=== PATIENT | male | born 1955 | race Caucasian/White ===

== ENCOUNTER 2021-01-17 21:09 | Inpatient (IN) | payer MEDICARE, OTHER ==
[~2021-01-17] VITALS: Ht 172.7 cm; Wt 67.1 kg
--- NOTE | 2021-01-17 21:50 | NUR ---
[facility], pt. on 5150 hold for dto to be medically cleared to be admitted to [facility]. Pt aox3.
[2021-01-17] MEDS ORDERED: FAMO20TA8 PO (22:00)
[2021-01-17] MEDS ORDERED: DOCUSATE (22:00)
[2021-01-17 22:16] LABS: *BILIRUBIN,URIN NEGATIVE (NEGATIVE); *CLARITY,URINE CLOUDY (CLEAR); *COLOR,URINE YELLOW (YELLOW); *KETONES,URINE NEGATIVE (NEGATIVE); LEUKOCYTE ESTERASE ,URINE TRACE (NEGATIVE); NITRITE, URINE NEGATIVE (NEGATIVE); PH,URINE 7.5 (5.0-8.0); UGLUCOSE 2+ (NEGATIVE)
[2021-01-17 22:17] LABS: *BLOOD, URINE TRACE INTACT (NEGATIVE)
[2021-01-17 22:26] LABS: *AMPHETAMINE, URINE NEGATIVE (NEGATIVE); *CANNABINOID, URINE NEGATIVE (NEGATIVE); *COCCAINE, URINE NEGATIVE (NEGATIVE); *OPIATE, URINE NEGATIVE (NEGATIVE); *PHENCYCLIDINE SCREEN,URINE NEGATIVE (NEGATIVE)
[2021-01-17] MEDS ORDERED: NITROFURANTOIN/NITROFURAN MAC 100 MG CAPSULE PO ONE ×2 (22:45→22:48)
--- NOTE | 2021-01-17 22:50 | NUR ---
Pt resting in bed with eyes closed. No signs of distress. Assisted pt. to restroom and offered pt. blankets. Pts items are secured away from bedside. Monitoring pt. closely.
[2021-01-17 22:56] LABS: BACTERIA,URINE MANY /HPF (NONE SEEN); RBC,URINE 0-3 /HPF (0-3); SQUAMOUS EPITHELIAL CELL,UR FEW /HPF (NONE SEEN); WBC,URINE 20-50 /HPF (0-3)
--- NOTE | 2021-01-17 23:00 | NUR ---
Comfort measures offered. Food and beverages offered. Pts behavior is talkative/cooperative at this time. pt. is alert, resting comfortably. bed in lowest position w/ side rails up. room light remains on, w/ direct line of sight for security. Vss. Will continue to monitor.
[2021-01-17] MEDS ORDERED: INSULIN REGULAR, HUMAN 300 UNIT/3 ML VIAL SQ ONE (23:30)
[2021-01-17] MEDS ORDERED: INSULIN REGULAR, HUMAN 300 UNIT/3 ML VIAL ONE (23:37)
--- NOTE | 2021-01-17 23:55 | NUR ---
Gave report to BRIAN Levy. Pt. to got to room 145C in [facility].
--- NOTE | 2021-01-18 00:06 | NUR ---
Note billy in ED - 01/18/21 at 0009 by ELDA Pt resting in bed with eyes closed. No signs of distress. Assisted pt. to restroom and offered pt. blankets. Pts items are secured away from bedside. Monitoring pt. closely.
[2021-01-18] MEDS ORDERED: BLOOD SUGAR DIAGNOSTIC 1 EACH STRIP VI ONE (00:15)
[2021-01-18] MEDS ORDERED: MAGNESIUM HYDROXIDE 30 ML LIQUID UDC PO PRN (00:15)
[2021-01-18] MEDS ORDERED: MAG HYDROX/AL HYDROX/SIMETH 30 ML LIQUID UDC PO PRN (00:15)
[2021-01-18] MEDS: LORAZEPAM 1 MG TABLET PO PRN ×2 (01:00→02:06)
[2021-01-18] MEDS: ACETAMINOPHEN 325 MG TABLET PO PRN (01:01)
[2021-01-18] MEDS: TEMAZEPAM 7.5 MG CAPSULE PO PRN (01:01)
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
[2021-01-18 03:31] VITALS: BP 162/85
[2021-01-18 05:51] VITALS: BP 140/80
--- NOTE | 2021-01-18 07:04 | NUR ---
slept 2.5 hours, total. assisted to the bathroom earlier, but is back asleep. no distress noted.
[2021-01-18 07:30] VITALS: BP 150/79
[2021-01-18] MEDS ORDERED: ESCI10TA PO (08:30)
[2021-01-18] MEDS ORDERED: GABA400C PO (08:31)
[2021-01-18] MEDS ORDERED: HYDR-4209 PO (08:33)
[2021-01-18] MEDS ORDERED: AMLO10TA4 PO (08:33)
[2021-01-18] MEDS ORDERED: MINO2.5T PO (08:34)
[2021-01-18] MEDS ORDERED: ATOR20TA PO (08:36)
[2021-01-18] MEDS ORDERED: QUET200T PO (08:36)
[2021-01-18] MEDS: HYDROCODONE/APAP 5-325MG TABLET PO PRN ×2 (09:44→18:35)
--- NOTE | 2021-01-18 09:59 | NUR ---
FIREARMS REPORT: Hadoop Java Developer completed and submitted a DOJ firearms report for 5150 grave disability certification. A copy of report has been placed in patient chart.
--- NOTE | 2021-01-18 10:00 | NUR ---
called [facility] to follow up with Covid vaccination report waiting for fax record to [place]. Addendum: 01/18/21 at 1842 by JAYLA PAZ RN [phone]
--- NOTE | 2021-01-18 11:09 | NUR ---
ABEL Initial Discharge Plan: Patient currently resides at [facility] (SNF) located at [address] [place] [address]; ([phone]). ABEL spoke with admin Le to see if pt is welcomed back. Le stated she would have to be in contact with facility and will let this service writer know soon. This SW contacted Nan ([phone]) and was unavailable, this service writer left a voicemail.
--- NOTE | 2021-01-18 11:10 | NUR ---
Family Contact: This SW contacted Nan ([phone]) and was unavailable, this advertising copy writer left a voicemail.
--- NOTE | 2021-01-18 11:35 | NUR ---
Treatment Plan: Pt refused to sign treatment plan and appeared to be confused.
--- NOTE | 2021-01-18 12:01 | NUR ---
took all wound picture from left anterior leg ,right nose, right thumb, right big toe , unable to pint from camera .will endorse.to next shift.
[2021-01-18] MEDS: QUETIAPINE FUMARATE 100 MG TABLET PO SCH (13:15)
[2021-01-18] MEDS: GABAPENTIN 100 MG CAPSULE PO SCH ×2 (13:15→17:08)
--- NOTE | 2021-01-18 14:53 | NUR ---
Family Contact: This SW received a phone call from friend Nan ([phone]) and stated that she is not really involved in patient's care and that pt gives her number. She shared that pt does not have any family that is involved in his care.
[2021-01-18] MEDS ORDERED: HYDROCODONE/APAP 5-325MG TABLET PO PRN (15:30)
[2021-01-18] MEDS ORDERED: DEXTROSE 50% 50 ML DISP.SYRIN IV PRN (17:00)
[2021-01-18] MEDS ORDERED: GABAPENTIN 400 MG CAPSULE PO SCH (17:00)
[2021-01-18] MEDS: MINOXIDIL 2.5 MG TABLET PO SCH (17:00)
[2021-01-18] MEDS: AMLODIPINE 10 MG TABLET PO SCH (17:08)
[2021-01-18 18:00] VITALS: BP 122/67
[2021-01-18] MEDS: NITROFURANTOIN/NITROFURAN MAC 100 MG CAPSULE PO SCH (20:48)
[2021-01-18] MEDS: ATORVASTATIN 20 MG TABLET PO SCH (20:48)
[2021-01-18] MEDS: BLOOD SUGAR DIAGNOSTIC 1 EACH STRIP VI SCH (20:59)
[2021-01-18] MEDS ORDERED: QUETIAPINE FUMARATE 100 MG TABLET PO SCH (21:00)
[2021-01-18] MEDS: INSULIN REGULAR, HUMAN 300 UNIT/3 ML VIAL SQ PRN (21:06)
[2021-01-18 21:13] VITALS: BP 136/68
[2021-01-19] MEDS: BLOOD SUGAR DIAGNOSTIC 1 EACH STRIP VI SCH ×4 (06:22→20:36)
--- NOTE | 2021-01-19 06:52 | NUR ---
GPS: Pt.slept for 8.45 last night. Calm and cooperative without any escalation of behavior noted. Assisted to the bathroom prn due to unsteady gait. B.S earlier was 183mg/dl. Will continue to monitor.
[2021-01-19 07:30] VITALS: BP 150/78
[2021-01-19 08:24] LABS: BILIRUBIN,TOTAL 0.3 mg/dL (0.2-1.0); CREATININE 0.8 mg/dL (0.6-1.3); POTASSIUM 4.5 mmol/L (3.5-5.1); TOTAL PROTEIN, SERUM 7.2 g/dL (6.4-8.2)
[2021-01-19] MEDS: FAMOTIDINE 20 MG TABLET PO SCH (08:42)
[2021-01-19] MEDS: AMLODIPINE 10 MG TABLET PO SCH (08:42)
[2021-01-19] MEDS: QUETIAPINE FUMARATE 100 MG TABLET PO SCH ×3 (08:43→20:28)
[2021-01-19] MEDS: NITROFURANTOIN/NITROFURAN MAC 100 MG CAPSULE PO SCH ×2 (08:43→20:28)
[2021-01-19] MEDS: MINOXIDIL 2.5 MG TABLET PO SCH ×2 (08:45→17:02)
[2021-01-19] MEDS: INSULIN REGULAR, HUMAN 300 UNIT/3 ML VIAL SQ PRN ×2 (08:51→20:40)
[2021-01-19] MEDS ORDERED: GABAPENTIN 100 MG CAPSULE PO SCH (09:00)
--- NOTE | 2021-01-19 09:16 | NUR ---
SNF Referral: [facility]
--- NOTE | 2021-01-19 09:30 | NUR ---
GPS: Pt alert/ oriented to person and place. pt cooperative with care. medications given and tolerated well by the pt. assisted with transfer from bed to wheelchair and pt went to toilet for BM today. no aggresive behavior at this time.
--- NOTE | 2021-01-19 11:20 | NUR ---
WOUND CARE CONSULT: PT PRESENTS WITH SCRATCH GERONIMO ON LEFT LOWER LEG, SKIN CONDITION TO RT LOWER LEG, SOME TOE AMPUTATIONS AND DRY WOUND TO RT GREAT TOE, PRESENT ON ADMISSION. SCRATCH GERONIMO NOTED TO NOSE WELL. RECOMMEND DPM CONSULT. DR SAINI NOTIFIED. WILL SEE PRDeonna VAUGHAN IN AGREEMENT WITH PLAN OF CARE.
--- NOTE | 2021-01-19 11:49 | NUR ---
SNF Contact: SW spoke with Julita porter from [facility] who stated that pt is accepted.
[2021-01-19] MEDS: GABAPENTIN 100 MG CAPSULE PO SCH ×2 (14:30→17:02)
[2021-01-19] MEDS: HYDROCODONE/APAP 5-325MG TABLET PO PRN (16:16)
[2021-01-19 16:37] VITALS: BP 140/72
--- NOTE | 2021-01-19 17:56 | NUR ---
GPS: pt alert and verbally responsive. complaint of pain on right ear 9/10, given NORCO and tolerated well. 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 reported to MD Ahmadi and ordered bactroban ointment. informed pt. no episode of hurting self. pt tolerated medications given.
[2021-01-19 20:16] VITALS: BP 124/72
[2021-01-19] MEDS: ATORVASTATIN 20 MG TABLET PO SCH (20:28)
[2021-01-19] MEDS: MUPIROCIN 2% OINT 22 GM TUBE NS SCH (20:28)
[2021-01-20] MEDS: BLOOD SUGAR DIAGNOSTIC 1 EACH STRIP VI SCH ×4 (06:28→20:42)
[2021-01-20 07:30] VITALS: BP 129/73
[2021-01-20] MEDS: INSULIN REGULAR, HUMAN 300 UNIT/3 ML VIAL SQ PRN ×4 (08:05→21:10)
[2021-01-20] MEDS: MUPIROCIN 2% OINT 22 GM TUBE NS SCH ×2 (08:59→20:33)
[2021-01-20] MEDS: AMLODIPINE 10 MG TABLET PO SCH (09:00)
[2021-01-20] MEDS: FAMOTIDINE 20 MG TABLET PO SCH (09:00)
[2021-01-20] MEDS: MINOXIDIL 2.5 MG TABLET PO SCH ×2 (09:00→16:15)
[2021-01-20] MEDS: NITROFURANTOIN/NITROFURAN MAC 100 MG CAPSULE PO SCH (09:00)
[2021-01-20] MEDS: QUETIAPINE FUMARATE 100 MG TABLET PO SCH ×3 (09:00→20:33)
[2021-01-20] MEDS: GABAPENTIN 100 MG CAPSULE PO SCH ×3 (09:00→16:15)
[2021-01-20 13:00] VITALS: BP 144/78
[2021-01-20 20:07] VITALS: BP 141/78
[2021-01-20] MEDS: SULFAMETH/TRIMETH 800/160 MG TABLET PO SCH (20:33)
[2021-01-20] MEDS: ATORVASTATIN 20 MG TABLET PO SCH (20:33)
[2021-01-20] MEDS: HYDROCODONE/APAP 5-325MG TABLET PO PRN (20:37)
[2021-01-21] MEDS: BLOOD SUGAR DIAGNOSTIC 1 EACH STRIP VI SCH ×4 (06:22→20:45)
[2021-01-21] MEDS: INSULIN REGULAR, HUMAN 300 UNIT/3 ML VIAL SQ PRN ×4 (07:45→20:48)
[2021-01-21 08:00] VITALS: BP 111/65
[2021-01-21] MEDS: GABAPENTIN 100 MG CAPSULE PO SCH ×3 (08:19→17:23)
[2021-01-21] MEDS: QUETIAPINE FUMARATE 100 MG TABLET PO SCH ×3 (08:19→20:36)
[2021-01-21] MEDS: FAMOTIDINE 20 MG TABLET PO SCH (08:19)
[2021-01-21] MEDS: MINOXIDIL 2.5 MG TABLET PO SCH ×2 (08:19→17:23)
[2021-01-21] MEDS: SULFAMETH/TRIMETH 800/160 MG TABLET PO SCH ×2 (08:19→20:36)
[2021-01-21] MEDS: AMLODIPINE 10 MG TABLET PO SCH (08:20)
[2021-01-21] MEDS: CLOTRIMAZOLE/BETAMET DIPROP CREAM 15 GM TUBE TOP SCH (08:20)
[2021-01-21] MEDS: MUPIROCIN 2% OINT 22 GM TUBE NS SCH ×2 (08:20→20:36)
[2021-01-21 16:00] VITALS: BP 102/56
[2021-01-21 19:51] VITALS: BP 110/56
[2021-01-21] MEDS: ATORVASTATIN 20 MG TABLET PO SCH (20:36)
[2021-01-22] MEDS: SULFAMETH/TRIMETH 800/160 MG TABLET PO SCH ×2 (08:21→21:01)
[2021-01-22] MEDS: BLOOD SUGAR DIAGNOSTIC 1 EACH STRIP VI SCH ×4 (08:21→21:01)
[2021-01-22] MEDS: QUETIAPINE FUMARATE 100 MG TABLET PO SCH ×3 (08:22→21:01)
[2021-01-22] MEDS: MINOXIDIL 2.5 MG TABLET PO SCH ×2 (08:22→16:51)
[2021-01-22] MEDS: FAMOTIDINE 20 MG TABLET PO SCH (08:22)
[2021-01-22] MEDS: AMLODIPINE 10 MG TABLET PO SCH (08:23)
[2021-01-22] MEDS: GABAPENTIN 100 MG CAPSULE PO SCH ×3 (08:25→16:51)
[2021-01-22] MEDS: MUPIROCIN 2% OINT 22 GM TUBE NS SCH ×2 (08:25→21:02)
[2021-01-22 08:27] VITALS: BP 115/67
[2021-01-22] MEDS: INSULIN REGULAR, HUMAN 300 UNIT/3 ML VIAL SQ PRN ×3 (08:27→21:04)
[2021-01-22] MEDS: CLOTRIMAZOLE/BETAMET DIPROP CREAM 15 GM TUBE TOP SCH (09:09)
[2021-01-22 16:01] VITALS: BP 127/77
[2021-01-22] MEDS: HYDROCODONE/APAP 5-325MG TABLET PO PRN ×2 (16:48→23:32)
--- NOTE | 2021-01-22 17:55 | NUR ---
patient compliant with medications and care. continues on Bactroban for MRSA nares. ambulating with FWW,no aggressive or combative behavior noted. in no acute distress.
[2021-01-22 20:10] VITALS: BP 105/61
--- NOTE | 2021-01-22 21:00 | NUR ---
Received patient in the day room watching TV. he is noted A/O x 2. he is calm and pleasant upon approached but then later, he was noted fixed on his Harrison pain medications. He stated, "I want to keep my pain medication with me, I don't want anyone to take my medication or steal it". Patient was given a reality checks and reoriented. he was reassured for his safety. He denied SI/HI/VH/AH he is able to verbally CFS. V/S stable. he was given PO fluids and snacks. safety and fall precaution in place. will continue to monitor.
[2021-01-22] MEDS: ATORVASTATIN 20 MG TABLET PO SCH (21:01)
[2021-01-23] MEDS: HYDROCODONE/APAP 5-325MG TABLET PO PRN ×2 (06:29→17:49)
[2021-01-23] MEDS: BLOOD SUGAR DIAGNOSTIC 1 EACH STRIP VI SCH ×4 (06:32→20:20)
[2021-01-23 08:04] VITALS: BP 112/61
[2021-01-23] MEDS: INSULIN REGULAR, HUMAN 300 UNIT/3 ML VIAL SQ PRN ×3 (08:29→20:29)
[2021-01-23] MEDS: SULFAMETH/TRIMETH 800/160 MG TABLET PO SCH ×2 (08:30→20:19)
[2021-01-23] MEDS: MINOXIDIL 2.5 MG TABLET PO SCH ×2 (08:30→17:06)
[2021-01-23] MEDS: QUETIAPINE FUMARATE 100 MG TABLET PO SCH ×2 (08:30→12:28)
[2021-01-23] MEDS: AMLODIPINE 10 MG TABLET PO SCH (08:31)
[2021-01-23] MEDS: GABAPENTIN 100 MG CAPSULE PO SCH (08:31)
[2021-01-23] MEDS: FAMOTIDINE 20 MG TABLET PO SCH (08:31)
[2021-01-23] MEDS: CLOTRIMAZOLE/BETAMET DIPROP CREAM 15 GM TUBE TOP SCH (08:32)
[2021-01-23] MEDS: MUPIROCIN 2% OINT 22 GM TUBE NS SCH ×2 (08:32→20:44)
[2021-01-23] MEDS: GABAPENTIN 300 MG CAPSULE PO SCH ×2 (12:28→17:06)
[2021-01-23 16:05] VITALS: BP 147/65
--- NOTE | 2021-01-23 18:24 | NUR ---
patient compliant with medications care. continues on Bactroban for MRSA nares. ambulating with FWW, on Acc-check with sliding scale no aggressive or combative behavior noted. in no acute distress.
[2021-01-23 20:13] VITALS: BP 98/52
[2021-01-23] MEDS: ATORVASTATIN 20 MG TABLET PO SCH (20:19)
[2021-01-23] MEDS: QUETIAPINE FUMARATE 200 MG TABLET PO SCH (20:19)
--- NOTE | 2021-01-23 22:00 | NUR ---
Received to care, initially in room, but then came to TV room, interacting minimally with select male peers. Compliant with medications, and tx plan, including keeping mask on, when outside of room. Reeducated on his MRSA infection to nares. Compliant with tx given, for such, as well as all medications and insulin coverage. As of 2200, he appears to be asleep. no distress noted. will continue to monitor closely.
--- NOTE | 2021-01-24 06:00 | NUR ---
slept 5.75 hours, total. continues to sleep. no distress noted
[2021-01-24] MEDS: BLOOD SUGAR DIAGNOSTIC 1 EACH STRIP VI SCH ×4 (06:41→20:39)
[2021-01-24 08:00] VITALS: BP 132/77
[2021-01-24] MEDS: SULFAMETH/TRIMETH 800/160 MG TABLET PO SCH ×2 (08:41→20:32)
[2021-01-24] MEDS: GABAPENTIN 300 MG CAPSULE PO SCH ×3 (08:41→16:24)
[2021-01-24] MEDS: AMLODIPINE 10 MG TABLET PO SCH (08:41)
[2021-01-24] MEDS: FAMOTIDINE 20 MG TABLET PO SCH (08:41)
[2021-01-24] MEDS: MINOXIDIL 2.5 MG TABLET PO SCH ×2 (08:41→16:24)
[2021-01-24] MEDS: QUETIAPINE FUMARATE 100 MG TABLET PO SCH ×2 (08:41→12:01)
[2021-01-24] MEDS: CLOTRIMAZOLE/BETAMET DIPROP CREAM 15 GM TUBE TOP SCH (08:42)
[2021-01-24] MEDS: MUPIROCIN 2% OINT 22 GM TUBE NS SCH ×2 (08:42→20:32)
[2021-01-24] MEDS: INSULIN REGULAR, HUMAN 300 UNIT/3 ML VIAL SQ PRN ×2 (12:02→16:27)
[2021-01-24] MEDS: HYDROCODONE/APAP 5-325MG TABLET PO PRN (12:09)
--- NOTE | 2021-01-24 14:33 | NUR ---
Court Hearing: Patient's court hearing for 0610 was today and it was upheld for GD.
[2021-01-24 16:13] VITALS: BP 127/78
--- NOTE | 2021-01-24 18:24 | NUR ---
received patient compliant with medications care. continues on Bactroban for MRSA nares. ambulating with FWW,no aggressive or combative behavior noted. in no acute distress.
[2021-01-24 20:22] VITALS: BP 108/72
[2021-01-24] MEDS: QUETIAPINE FUMARATE 200 MG TABLET PO SCH (20:32)
[2021-01-24] MEDS: ATORVASTATIN 20 MG TABLET PO SCH (20:32)
[2021-01-25] MEDS: HYDROCODONE/APAP 5-325MG TABLET PO PRN ×3 (02:27→15:00)
[2021-01-25] MEDS: BLOOD SUGAR DIAGNOSTIC 1 EACH STRIP VI SCH ×4 (06:22→20:26)
--- NOTE | 2021-01-25 06:36 | NUR ---
GPS: Pt.slept for 7.15 last night. [facility] prn was given for pain earlier and was effective. No increased agitation noted. B.S at this time is 120mg/dl. Safe environment provided. Will continue to monitor.
[2021-01-25 07:30] VITALS: BP 118/66
--- NOTE | 2021-01-25 07:30 | NUR ---
Received report from ANNA Plummer. All questions, comments, and concerns were addressed. Received patient resting quietly in his assigned bed. Bed is in low and locked position.
[2021-01-25] MEDS: CLOTRIMAZOLE/BETAMET DIPROP CREAM 15 GM TUBE TOP SCH (08:04)
[2021-01-25] MEDS: MUPIROCIN 2% OINT 22 GM TUBE NS SCH ×2 (08:04→20:26)
[2021-01-25] MEDS: FAMOTIDINE 20 MG TABLET PO SCH (08:05)
[2021-01-25] MEDS: QUETIAPINE FUMARATE 100 MG TABLET PO SCH ×2 (08:05→12:15)
[2021-01-25] MEDS: AMLODIPINE 10 MG TABLET PO SCH (08:05)
[2021-01-25] MEDS: MINOXIDIL 2.5 MG TABLET PO SCH ×2 (08:05→17:38)
[2021-01-25] MEDS: GABAPENTIN 300 MG CAPSULE PO SCH ×3 (08:05→17:38)
[2021-01-25] MEDS: INSULIN REGULAR, HUMAN 300 UNIT/3 ML VIAL SQ PRN ×3 (12:18→20:27)
[2021-01-25 16:46] VITALS: BP 116/72
--- NOTE | 2021-01-25 17:54 | NUR ---
Patient is alert and oriented. Patient is cooperative, redirectable, and has appropriate interaction with others. Patient denies SI/HI, denies AH/VH. Patient is compliant with medications, no adverse reaction noted. Patient able to tolerate food and fluids. Ambulates with wheelchair due to unsteady gait. Patient is able to perform self care and ADL's independently. Patient encouraged to communicate needs to staff, encouraged to participate in the unit groups and therapeutic milieu.
--- NOTE | 2021-01-25 18:20 | NUR ---
Patient was found kneeling on his knee in the day room next to the trash can. Patient states he kneeled down to throw the trash away from his tray and he couldn't stand back up because he felt too weak. Patient given his walker and was able to ambulate with walker. Patient provided with education about reason for use of walk and about his safety. patient verbalizes understanding.
[2021-01-25] MEDS: ATORVASTATIN 20 MG TABLET PO SCH (20:22)
[2021-01-25] MEDS: QUETIAPINE FUMARATE 200 MG TABLET PO SCH (20:22)
[2021-01-25 20:49] VITALS: BP 144/82
[2021-01-26] MEDS: BLOOD SUGAR DIAGNOSTIC 1 EACH STRIP VI SCH ×4 (06:32→20:21)
[2021-01-26] MEDS: HYDROCODONE/APAP 5-325MG TABLET PO PRN ×2 (07:00→18:43)
[2021-01-26] MEDS: CLOTRIMAZOLE/BETAMET DIPROP CREAM 15 GM TUBE TOP SCH (09:00)
[2021-01-26] MEDS: MUPIROCIN 2% OINT 22 GM TUBE NS SCH ×2 (09:00→20:14)
[2021-01-26 09:35] VITALS: BP 117/69
[2021-01-26] MEDS: GABAPENTIN 300 MG CAPSULE PO SCH ×3 (10:09→16:46)
[2021-01-26] MEDS: QUETIAPINE FUMARATE 100 MG TABLET PO SCH ×2 (10:10→12:35)
[2021-01-26] MEDS: MINOXIDIL 2.5 MG TABLET PO SCH ×2 (10:10→16:46)
[2021-01-26] MEDS: FAMOTIDINE 20 MG TABLET PO SCH (10:10)
[2021-01-26] MEDS: AMLODIPINE 10 MG TABLET PO SCH (10:10)
[2021-01-26] MEDS: INSULIN REGULAR, HUMAN 300 UNIT/3 ML VIAL SQ PRN ×2 (12:20→20:23)
[2021-01-26 15:40] VITALS: BP 120/72
--- NOTE | 2021-01-26 17:45 | NUR ---
GPS: pt alert and verbally responsive. cooperative with care. medicatins given and tolerated well. checked blood glucose this afternoon before dinner ans BS 100. no violent behavior noted during the shift. pt likes to watch tv and stay in bed.
[2021-01-26 20:00] VITALS: BP 135/72
[2021-01-26] MEDS: ATORVASTATIN 20 MG TABLET PO SCH (20:14)
[2021-01-26] MEDS: QUETIAPINE FUMARATE 25 MG TABLET PO SCH (20:15)
[2021-01-26] MEDS: QUETIAPINE FUMARATE 200 MG TABLET PO SCH (20:15)
[2021-01-27 07:30] VITALS: BP 123/70
[2021-01-27] MEDS: BLOOD SUGAR DIAGNOSTIC 1 EACH STRIP VI SCH ×4 (07:44→21:12)
[2021-01-27] MEDS: FAMOTIDINE 20 MG TABLET PO SCH (08:09)
[2021-01-27] MEDS: QUETIAPINE FUMARATE 100 MG TABLET PO SCH ×2 (08:09→13:21)
[2021-01-27] MEDS: AMLODIPINE 10 MG TABLET PO SCH (08:11)
[2021-01-27] MEDS: GABAPENTIN 300 MG CAPSULE PO SCH ×3 (08:13→18:29)
[2021-01-27] MEDS: MINOXIDIL 2.5 MG TABLET PO SCH ×2 (08:14→18:29)
[2021-01-27] MEDS: CLOTRIMAZOLE/BETAMET DIPROP CREAM 15 GM TUBE TOP SCH (08:16)
[2021-01-27] MEDS: INSULIN REGULAR, HUMAN 300 UNIT/3 ML VIAL SQ PRN ×2 (13:24→18:11)
[2021-01-27] MEDS: ACETAMINOPHEN 325 MG TABLET PO PRN (18:21)
[2021-01-27 20:19] VITALS: BP 110/51
[2021-01-27] MEDS: QUETIAPINE FUMARATE 200 MG TABLET PO SCH (21:10)
[2021-01-27] MEDS: HYDROCODONE/APAP 5-325MG TABLET PO PRN (21:10)
[2021-01-27] MEDS: QUETIAPINE FUMARATE 25 MG TABLET PO SCH (21:11)
[2021-01-27] MEDS: ATORVASTATIN 20 MG TABLET PO SCH (21:11)
--- NOTE | 2021-01-27 22:00 | NUR ---
received to care, at 1800, sitting in tv room, pleasant upon approach, able to make his needs known to staff. no interactions with peers noted. compliant with medications and staff direction. as of 2200, he appears to be asleep. no distress noted. will continue to monitor closely.
--- NOTE | 2021-01-28 02:35 | NUR ---
Patient noted having loose stools, per patient, he is already having few episodes of loose stools. He denied pain. he denied nausea or vomiting. V/S stable at this time. Dr Norton was notified and new order obtained to collect stool for C-diff. order noted. will collect stool as soon as is available. will continue to monitor.
[2021-01-28] MEDS: HYDROCODONE/APAP 5-325MG TABLET PO PRN ×2 (06:40→18:42)
[2021-01-28] MEDS: BLOOD SUGAR DIAGNOSTIC 1 EACH STRIP VI SCH ×4 (06:46→20:13)
[2021-01-28 07:30] VITALS: BP 98/63
[2021-01-28] MEDS: INSULIN REGULAR, HUMAN 300 UNIT/3 ML VIAL SQ PRN ×4 (08:16→20:11)
[2021-01-28] MEDS: QUETIAPINE FUMARATE 100 MG TABLET PO SCH ×2 (08:27→12:16)
[2021-01-28] MEDS: GABAPENTIN 300 MG CAPSULE PO SCH ×3 (08:29→17:03)
[2021-01-28] MEDS: FAMOTIDINE 20 MG TABLET PO SCH (08:29)
[2021-01-28] MEDS: MINOXIDIL 2.5 MG TABLET PO SCH (08:35)
[2021-01-28] MEDS: AMLODIPINE 10 MG TABLET PO SCH (08:35)
--- NOTE | 2021-01-28 09:30 | NUR ---
Reminded patient that we need his stool sample and patient verbalized understanding.
[2021-01-28] MEDS: CLOTRIMAZOLE/BETAMET DIPROP CREAM 15 GM TUBE TOP SCH (09:40)
--- NOTE | 2021-01-28 10:12 | NUR ---
Received patient sitting on the wheelchair by the [address] way. Shower is given by the POCKET AND PULLEY MACHINE OPERATOR. Wound treatment done on his right great toe stomp and antifungal cream applied on the right lower leg . All due meds given per MD order, tolerated well. Patient is cooperative upon assessment. Will continue to monitor.
[2021-01-28 16:00] VITALS: BP 128/75
[2021-01-28] MEDS: METFORMIN HCL 500 MG TABLET PO SCH (17:03)
--- NOTE | 2021-01-28 18:25 | NUR ---
When asked if he is having diarrhea patient said "NO " and shook his head.
[2021-01-28 20:00] VITALS: BP 163/87
[2021-01-28] MEDS: QUETIAPINE FUMARATE 200 MG TABLET PO SCH (20:05)
[2021-01-28] MEDS: QUETIAPINE FUMARATE 25 MG TABLET PO SCH (20:05)
[2021-01-28] MEDS: TEMAZEPAM 7.5 MG CAPSULE PO PRN (23:28)
[2021-01-29 06:32] LABS: HEMATOCRIT 32.7 % (36.7-47.1); MEAN CORPUSCULAR HEMOGLOBIN 28.9 uug (23.8-33.4); MEAN CORPUSCULAR VOLUME 88.6 fL (73.0-96.2); PLATELET COUNT (AUTO) 279 K/uL (152-348)
[2021-01-29] MEDS: BLOOD SUGAR DIAGNOSTIC 1 EACH STRIP VI SCH ×4 (06:36→20:19)
[2021-01-29 07:03] LABS: THYROID STIMULATING HORMONE 0.928 mIU/mL (0.358-3.740)
[2021-01-29 07:30] VITALS: BP 109/67
[2021-01-29 07:30] LABS: BILIRUBIN,TOTAL 0.3 mg/dL (0.2-1.0); CREATININE 1.1 mg/dL (0.6-1.3); MAGNESIUM 1.9 mg/dL (1.8-2.4); PHOSPHOROUS 3.9 mg/dL (2.5-4.9); POTASSIUM 5.3 mmol/L (3.5-5.1); TOTAL PROTEIN, SERUM 7.5 g/dL (6.4-8.2)
[2021-01-29] MEDS: GABAPENTIN 300 MG CAPSULE PO SCH ×3 (08:01→16:40)
[2021-01-29] MEDS: METFORMIN HCL 500 MG TABLET PO SCH ×2 (08:01→17:01)
[2021-01-29] MEDS: FAMOTIDINE 20 MG TABLET PO SCH (08:01)
[2021-01-29] MEDS: QUETIAPINE FUMARATE 100 MG TABLET PO SCH ×2 (08:02→12:15)
[2021-01-29] MEDS: INSULIN REGULAR, HUMAN 300 UNIT/3 ML VIAL SQ PRN ×4 (08:07→20:23)
[2021-01-29] MEDS: HYDROCODONE/APAP 5-325MG TABLET PO PRN ×2 (08:22→16:54)
[2021-01-29] MEDS: LISINOPRIL 5 MG TABLET PO SCH (09:56)
--- NOTE | 2021-01-29 10:00 | NUR ---
received to care pleasant upon approach. interacts well with select peers and staff. compliant with medications and staff direction. attending groups. no distress noted.
[2021-01-29] MEDS: CLOTRIMAZOLE/BETAMET DIPROP CREAM 15 GM TUBE TOP SCH (10:03)
[2021-01-29 16:00] VITALS: BP 148/84
[2021-01-29 20:00] VITALS: BP 111/68
[2021-01-29] MEDS: QUETIAPINE FUMARATE 25 MG TABLET PO SCH (20:14)
[2021-01-29] MEDS: QUETIAPINE FUMARATE 200 MG TABLET PO SCH (20:14)
[2021-01-29] MEDS: LORAZEPAM 1 MG TABLET PO PRN (21:29)
[2021-01-30] MEDS: HYDROCODONE/APAP 5-325MG TABLET PO PRN (02:18)
--- NOTE | 2021-01-30 03:00 | NUR ---
GPS: Pt.having loose stools/diarrhea x5. Assisted to the bathroom prn. Stool was collected for C-diff toxin as previously ordered by on 01/28/21. Afebrile. No N/V noted. MD Guzman was paged awaiting to call back.
--- NOTE | 2021-01-30 03:29 | NUR ---
GPS: called back with orders,carried-out.
[2021-01-30] MEDS ORDERED: LOPERAMIDE HCL 2 MG CAPSULE PO ONE (03:30)
[2021-01-30 06:16] LABS: *OCCULT BLOOD STOOL POSITIVE (NEGATIVE)
[2021-01-30] MEDS: BLOOD SUGAR DIAGNOSTIC 1 EACH STRIP VI SCH ×4 (06:18→20:46)
--- NOTE | 2021-01-30 06:30 | NUR ---
GPS: Pt.showering at this time being assisted by head chef. No further diarrhea episodes noted so far. Immodium 2mg given earlier was effective. Will continue to monitor.
[2021-01-30 07:51] VITALS: BP 120/73
[2021-01-30] MEDS: CLOTRIMAZOLE/BETAMET DIPROP CREAM 15 GM TUBE TOP SCH (08:48)
[2021-01-30] MEDS: GABAPENTIN 300 MG CAPSULE PO SCH ×3 (08:48→16:56)
[2021-01-30] MEDS: QUETIAPINE FUMARATE 100 MG TABLET PO SCH ×2 (08:48→12:17)
[2021-01-30] MEDS: METFORMIN HCL 500 MG TABLET PO SCH ×2 (08:48→16:56)
[2021-01-30] MEDS: FAMOTIDINE 20 MG TABLET PO SCH (08:48)
[2021-01-30] MEDS: LISINOPRIL 5 MG TABLET PO SCH (08:50)
[2021-01-30] MEDS: INSULIN REGULAR, HUMAN 300 UNIT/3 ML VIAL SQ PRN ×4 (08:52→20:47)
[2021-01-30 16:13] VITALS: BP 114/67
--- NOTE | 2021-01-30 18:11 | NUR ---
received to care pleasant upon approach. interacts well with select peers. attends group activity compliant with medications
[2021-01-30 20:27] VITALS: BP 112/64
[2021-01-30] MEDS ORDERED: QUETIAPINE FUMARATE 100 MG TABLET PO SCH (21:00)
[2021-01-31] MEDS: BLOOD SUGAR DIAGNOSTIC 1 EACH STRIP VI SCH ×2 (06:16→12:18)
--- NOTE | 2021-01-31 06:38 | NUR ---
GPS: Pt.slept 6.30 last night. B.S at this time is 138 mg/dl. No increased agitation noted. Re-directed prn. No reported diarrhea episodes during the shift. Afebrile.
[2021-01-31 07:30] VITALS: BP 125/79
[2021-01-31] MEDS: METFORMIN HCL 500 MG TABLET PO SCH (08:21)
[2021-01-31] MEDS: GABAPENTIN 300 MG CAPSULE PO SCH ×2 (08:21→12:18)
[2021-01-31] MEDS: QUETIAPINE FUMARATE 100 MG TABLET PO SCH ×2 (08:21→12:19)
[2021-01-31] MEDS: FAMOTIDINE 20 MG TABLET PO SCH (08:21)
[2021-01-31 08:22] VITALS: BP 125/74
[2021-01-31] MEDS: LISINOPRIL 5 MG TABLET PO SCH (08:22)
[2021-01-31] MEDS: CLOTRIMAZOLE/BETAMET DIPROP CREAM 15 GM TUBE TOP SCH (08:23)
--- NOTE | 2021-01-31 08:36 | NUR ---
Discharge Note: Patient will be discharged to correction facility [facility] [place] [address]; ) via ambulance transportation at 12PM. Compound Finisher spoke with [facility] Beef Pluck Trimmer at [facility]; ([phone], who stated patient will be accepted today. Patient does not have any family to contact. Patient is alert and oriented x2 and is unable to plan for self-care. Patient denies any suicidal or homicidal ideation. Patient is aware and agreeable with discharge plans. Patient will continue to follow-up with Psychiatrist Dr. Padilla and Systems Support Officer Dr. Lancaster at [facility]. Patient presents with euthymic and congruent mood.
[2021-01-31] MEDS: INSULIN REGULAR, HUMAN 300 UNIT/3 ML VIAL SQ PRN (12:20)
--- NOTE | 2021-01-31 13:26 | NUR ---
Discharged patient to custodial facility [facility] via ambulance transportation at 1 PM. report given to Tobi TORRES at [facility]. all personal belonging returned to patient.Patient is alert and oriented x2 and is unable to plan for self-care. Patient denies any suicidal or homicidal ideation. Patient is aware and agreeable with discharge plans. Patient will continue to follow-up with Psychiatrist Dr. Padilla and Saw Tailer Dr. Lancaster at [facility].
== END 2021-01-31 13:00 | DRG 885 ==
LOC: ER 21:09 → GPS 23:54
PROVIDERS: ADMIT Psychiatry & Neurology Psychosomatic Medicine; ATTEND Nurse Practitioner Acute Care
DX: F25.0 Schizoaffective disorder, bipolar type (principal); F01.50 Vascular dementia, unspecified severity, without behavioral disturbance, psychotic disturbance, mood disturbance, and anxiety; I11.0 Hypertensive heart disease with heart failure; B18.1 Chronic viral hepatitis B without delta-agent; E11.65 Type 2 diabetes mellitus with hyperglycemia; N39.0 Urinary tract infection, site not specified; Z16.12 Extended spectrum beta lactamase (ESBL) resistance; T87.43 Infection of amputation stump, right lower extremity; F29 Unspecified psychosis not due to a substance or known physiological condition; I50.9 Heart failure, unspecified; E78.5 Hyperlipidemia, unspecified; Z20.822 Contact with and (suspected) exposure to COVID-19; D64.9 Anemia, unspecified; E11.40 Type 2 diabetes mellitus with diabetic neuropathy, unspecified; E87.6 Hypokalemia; F41.9 Anxiety disorder, unspecified; L30.9 Dermatitis, unspecified; M20.42 Other hammer toe(s) (acquired), left foot; M20.41 Other hammer toe(s) (acquired), right foot; Z79.84 Long term (current) use of oral hypoglycemic drugs; Z22.322 Carrier or suspected carrier of Methicillin resistant Staphylococcus aureus; L85.3 Xerosis cutis; B96.20 Unspecified Escherichia coli [E. coli] as the cause of diseases classified elsewhere; F32.9 Major depressive disorder, single episode, unspecified; F39 Unspecified mood [affective] disorder; E11.621 Type 2 diabetes mellitus with foot ulcer; L97.519 Non-pressure chronic ulcer of other part of right foot with unspecified severity; Y83.8 Other surgical procedures as the cause of abnormal reaction of the patient, or of later complication, without mention of misadventure at the time of the procedure; Y92.89 Other specified places as the place of occurrence of the external cause
CPT/HCPCS: 36415; 83735; 84100; 84132; 84443; 85025; 87077; 87086; 93005; 97161; A4663; A6209; J1815

== ENCOUNTER 2021-04-10 15:12 | Inpatient (IN) | payer MEDICARE, OTHER ==
[~2021-04-10] VITALS: Ht 170.2 cm; Wt 68.0 kg
[~2021-04-10 15:12] MED LIST: AMLO10TA4 PO; ATOR20TA PO; DOCUSATE; FAMO20TA8 PO; GABA400C PO; HYDR-4209 PO; MINO2.5T PO
[2021-04-10] MEDS ORDERED: LISI-782 PO ×2 (15:41→21:53)
[2021-04-10] MEDS ORDERED: FAMO-132 PO (15:41)
[2021-04-10] MEDS ORDERED: INSU100V28 SQ (15:41)
[2021-04-10] MEDS ORDERED: HYDR-4209 PO ×2 (15:41→21:49)
[2021-04-10] MEDS ORDERED: GLUCOPHAGE PO (15:41)
[2021-04-10] MEDS ORDERED: GABA300C PO (15:41)
[2021-04-10] MEDS ORDERED: QUET100T PO (15:41)
[2021-04-10] MEDS ORDERED: QUET300T2 PO (15:41)
[2021-04-10 16:35] LABS: HEMATOCRIT 37.8 % (36.7-47.1); MEAN CORPUSCULAR HEMOGLOBIN 28.6 uug (23.8-33.4); PLATELET COUNT (AUTO) 176 K/uL (152-348)
[2021-04-10 16:37] LABS: CARBON DIOXIDE 24 mmol/L (21-32); CHLORIDE 103 mmol/L (98-107); CREATININE 0.9 mg/dL (0.6-1.3); GLUCOSE 223 mg/dL (74-106); UREA NITROGEN, BLOOD 27 mg/dL (7-18)
[2021-04-10 16:41] LABS: ETHANOL < 3 MG/DL (0-0)
[2021-04-10 16:52] LABS: ALANINE AMINOTRANSFERASE 92 U/L (16-63); ALKALINE PHOSPHATASE 117 U/L (50-136); ASPARTATE AMINOTRANSFERASE 78 U/L (15-37); BILIRUBIN,DIRECT 0.1 mg/dL (0.0-0.2); BILIRUBIN,TOTAL 0.2 mg/dL (0.2-1.0); TOTAL PROTEIN, SERUM 8.4 g/dL (6.4-8.2)
[2021-04-10 16:55] LABS: ACETAMINOPHEN < 2.0 ug/mL (10-30)
--- NOTE | 2021-04-10 17:08 | NUR ---
pt medically cleares, called [facility]y for psych eval.
--- NOTE | 2021-04-10 17:41 | NUR ---
imani andrews to call friend, Nan.
--- NOTE | 2021-04-10 17:42 | NUR ---
jessica kahn provided for pt.
[2021-04-10 17:52] LABS: *BILIRUBIN,URIN NEGATIVE (NEGATIVE); *CLARITY,URINE CLEAR (CLEAR); *COLOR,URINE YELLOW (YELLOW); *KETONES,URINE NEGATIVE (NEGATIVE); *UROBILINOGEN,URINE 0.2 E.U./dl (NORMAL); LEUKOCYTE ESTERASE ,URINE NEGATIVE (NEGATIVE); NITRITE, URINE NEGATIVE (NEGATIVE); UGLUCOSE TRACE (NEGATIVE)
[2021-04-10 17:54] LABS: *BLOOD, URINE TRACE (NEGATIVE)
[2021-04-10 18:01] LABS: *AMPHETAMINE, URINE NEGATIVE (NEGATIVE); *CANNABINOID, URINE NEGATIVE (NEGATIVE); *COCCAINE, URINE NEGATIVE (NEGATIVE); *OPIATE, URINE NEGATIVE (NEGATIVE); *PHENCYCLIDINE SCREEN,URINE NEGATIVE (NEGATIVE)
[2021-04-10 19:56] LABS: BACTERIA,URINE NONE SEEN /HPF (NONE SEEN); SQUAMOUS EPITHELIAL CELL,UR FEW /HPF (NONE SEEN); URINE AMORPHOUS URATE FEW /HPF; WBC,URINE 0-3 /HPF (0-3)
--- NOTE | 2021-04-10 20:50 | NUR ---
Transfered to [facility] via [facility] with no distress noted.
[2021-04-10 21:03] VITALS: BP 196/112
[2021-04-10] MEDS ORDERED: GABA-532 PO (21:53)
[2021-04-10] MEDS ORDERED: METF-440 PO (21:53)
[2021-04-10] MEDS ORDERED: MAG HYDROX/AL HYDROX/SIMETH 30 ML LIQUID UDC PO PRN (22:30)
[2021-04-10] MEDS ORDERED: BLOOD SUGAR DIAGNOSTIC 1 EACH STRIP VI ONE (22:30)
[2021-04-10] MEDS: LISINOPRIL 5 MG TABLET PO SCH (22:58)
[2021-04-10] MEDS ORDERED: LISINOPRIL 10 MG TABLET ONE (23:01)
[2021-04-11 07:30] VITALS: BP 179/101
--- NOTE | 2021-04-11 07:54 | NUR ---
ABEL Initial Discharge Note Pt currently resides at [facility] located at [address] [place] [id number] ([phone]). ABEL called [facility] to speak with foundation coordinator; however, unavailable. ABEL will call foundation coordinator at a later time to see if pt is welcomed back. ABEL called Nan Angulo ([phone]) listed as pt's emergency contact and was unavailable; ABEL left voicemail. ABEL will continue to work with pt and MD to ensure a safe and proper discharge plan.
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
[2021-04-11] MEDS: GABAPENTIN 300 MG CAPSULE PO SCH ×3 (08:34→17:31)
[2021-04-11] MEDS: METFORMIN HCL 500 MG TABLET PO SCH ×2 (08:34→17:31)
[2021-04-11] MEDS: FAMOTIDINE 20 MG TABLET PO SCH (08:34)
[2021-04-11] MEDS: LISINOPRIL 5 MG TABLET PO SCH (08:35)
[2021-04-11] MEDS: LORAZEPAM 0.5 MG TABLET PO PRN ×2 (08:38→20:08)
[2021-04-11] MEDS ORDERED: hydrALAZINE HCL 10 MG TABLET PO PRN (11:45)
--- NOTE | 2021-04-11 11:47 | NUR ---
GPS: PT WITH NEW ORDER OF HYDRALAZINE 10MG Q6HRS PRN PT HAD A BP OF 175/96 HR 88. PT GIVEN LISINOPRIL PER ORDER AND PT RIGHT NOW BP 142/82 HR 88. PT MADE AWARE. PSYCHIATRIST ORDERED EKG STAT TODAY
[2021-04-11 12:40] LABS: THYROID STIMULATING HORMONE 1.798 mIU/mL (0.358-3.740)
[2021-04-11] MEDS: LITHIUM CARBONATE 150 MG CAPSULE PO SCH ×2 (13:29→17:32)
[2021-04-11] MEDS: risperiDONE 1 MG TABLET PO SCH ×2 (13:30→20:08)
--- NOTE | 2021-04-11 13:58 | NUR ---
Firearms Report: Customer Marketing Assistant completed and submitted a DOJ firearms report for 5150 grave disability and danger to self certifications. A copy of report has been placed in patient chart.
--- NOTE | 2021-04-11 14:11 | NUR ---
GPS: PT THIS MORNING BP 179/101 HR 87, GIVEN LISINOPRIL AFTER BREAKFAST AND AFTER AN HOUR PT BP WENT 145/85 HR 85. RACHEL BHAKTA ORDERED HYDRALAZINE 10MG Q6HRS PRN FOR SBP > 160. PT RIGHT NOW BP 197/105 HR 94. ADMINISTER HYDRALIN. WILL MONITOR PT
[2021-04-11 15:38] VITALS: BP 197/105
--- NOTE | 2021-04-11 18:38 | NUR ---
GPS: RECHECKED PT BP OF NOW, BP 157/90 HR 90. ENCOURAGED PT TO RELAX AND DEEP BREATHING EXERCISE. PT DENIES ANY PAIN OR DISCOMFORT.
[2021-04-11] MEDS ORDERED: DEXTROSE 50% 50 ML DISP.SYRIN IV PRN (20:00)
[2021-04-11] MEDS ORDERED: CLONIDINE HCL 0.1 MG TABLET PO PRN (20:00)
[2021-04-11] MEDS: METOPROLOL TARTRATE 25 MG TABLET PO SCH (20:13)
[2021-04-11] MEDS: LISINOPRIL 10 MG TABLET PO SCH (20:14)
[2021-04-11 20:44] VITALS: BP 157/90
[2021-04-11] MEDS: BLOOD SUGAR DIAGNOSTIC 1 EACH STRIP VI SCH (20:59)
[2021-04-12] MEDS: BLOOD SUGAR DIAGNOSTIC 1 EACH STRIP VI SCH ×4 (05:52→20:30)
--- NOTE | 2021-04-12 06:36 | NUR ---
Received patient in bed, awake but confused. Unable to remember to use his walker, despite frequent reminders. Patients gait is unsteady, and almost fell getting out of the bed. This advertising copy writer assisted patient to a cleveland chair and monitored him closely at the station . Patient is calm and compliant with medications. Blood pressure noted to be high at the start of the shift. Die Trimmer medicated the patient per order and upon recheck the pressure was continues to be elevate. A PRN medication given this am and staff will continue to treat and report to the doctor as needed. No s/s of alteration in tissue perfusion noted at this time.
[2021-04-12 07:30] VITALS: BP 174/93
[2021-04-12] MEDS: FAMOTIDINE 20 MG TABLET PO SCH (08:20)
[2021-04-12] MEDS: LISINOPRIL 10 MG TABLET PO SCH ×2 (08:22→20:20)
[2021-04-12] MEDS: METOPROLOL TARTRATE 25 MG TABLET PO SCH (08:22)
[2021-04-12] MEDS: METFORMIN HCL 500 MG TABLET PO SCH ×2 (08:23→18:12)
[2021-04-12] MEDS: LITHIUM CARBONATE 150 MG CAPSULE PO SCH ×3 (08:23→18:15)
[2021-04-12] MEDS: GLIMEPIRIDE 2 MG TABLET PO SCH (08:23)
[2021-04-12] MEDS: risperiDONE 1 MG TABLET PO SCH ×2 (08:23→20:20)
[2021-04-12] MEDS: GABAPENTIN 300 MG CAPSULE PO SCH ×3 (08:23→18:12)
[2021-04-12] MEDS: INSULIN REGULAR, HUMAN 300 UNIT/3 ML VIAL SQ PRN ×3 (08:36→20:32)
[2021-04-12 09:00] VITALS: BP 110/67
[2021-04-12] MEDS ORDERED: METOPROLOL TARTRATE 25 MG TABLET PO ONE (09:15)
[2021-04-12] MEDS ORDERED: CLONIDINE HCL 0.1 MG TABLET PO PRN (09:15)
--- NOTE | 2021-04-12 12:48 | NUR ---
GPS: RECEIVED PT TODAY, AWAKE ALERT AND ORIENTED X 3. PT DENIES ANY PAIN OR DISCOMFORT. PT BP PER VICE PRESIDENT UNDERWRITING WHEN IT WAS CHECKED WAS 174/93. PT GIVEN LISINOPRIL AT 0822 AND AT 9AM BP WAS RECHECKED, BP 110/67 HR 69. WILL MONITOR PT.
[2021-04-12 16:24] VITALS: BP 116/64
[2021-04-12 20:09] VITALS: BP 100/57
[2021-04-12] MEDS: METOPROLOL TARTRATE 50 MG TABLET PO SCH (20:20)
[2021-04-13] MEDS: BLOOD SUGAR DIAGNOSTIC 1 EACH STRIP VI SCH ×4 (06:20→20:42)
[2021-04-13 07:30] VITALS: BP 171/90
[2021-04-13 08:00] VITALS: BP 125/69
[2021-04-13] MEDS: FAMOTIDINE 20 MG TABLET PO SCH (08:37)
[2021-04-13] MEDS: GABAPENTIN 300 MG CAPSULE PO SCH ×3 (08:37→17:37)
[2021-04-13] MEDS: GLIMEPIRIDE 2 MG TABLET PO SCH (08:38)
[2021-04-13] MEDS: LITHIUM CARBONATE 150 MG CAPSULE PO SCH ×3 (08:38→17:37)
[2021-04-13] MEDS: METFORMIN HCL 500 MG TABLET PO SCH ×2 (08:38→17:37)
[2021-04-13] MEDS: risperiDONE 1 MG TABLET PO SCH ×3 (08:46→17:37)
[2021-04-13] MEDS: LISINOPRIL 10 MG TABLET PO SCH ×2 (08:47→20:36)
[2021-04-13] MEDS: METOPROLOL TARTRATE 50 MG TABLET PO SCH ×2 (08:47→20:36)
[2021-04-13] MEDS: INSULIN REGULAR, HUMAN 300 UNIT/3 ML VIAL SQ PRN (13:13)
--- NOTE | 2021-04-13 14:42 | NUR ---
GPS: PT COOPERASTIVE WITH CARE AND COMPLIANT WITH MEDICATION. PT WALKS ALONG THE HALLWAY. INSULIN GIVEN AND TOLERATED WELL. DENIES PAIN OR DISCOMFORT.
[2021-04-13 16:06] VITALS: BP 141/67
[2021-04-13] MEDS: MUPIROCIN 2% OINT 22 GM TUBE NS SCH (17:37)
[2021-04-13 20:00] VITALS: BP 148/84
[2021-04-14] MEDS: BLOOD SUGAR DIAGNOSTIC 1 EACH STRIP VI SCH ×4 (06:22→20:46)
--- NOTE | 2021-04-14 06:37 | NUR ---
GPS: Pt.slept 7.45 last night. B.S.at this time is 116mg/dl. No s/s of glycemic reactions noted. No aggressive behavior noted. Fall precautions observed. Will continue to monitor.
[2021-04-14 07:30] VITALS: BP 135/73
[2021-04-14] MEDS: MUPIROCIN 2% OINT 22 GM TUBE NS SCH ×2 (09:15→17:43)
[2021-04-14] MEDS: GABAPENTIN 300 MG CAPSULE PO SCH ×3 (09:15→17:30)
[2021-04-14] MEDS: METFORMIN HCL 500 MG TABLET PO SCH ×2 (09:15→17:53)
[2021-04-14] MEDS: FAMOTIDINE 20 MG TABLET PO SCH (09:16)
[2021-04-14] MEDS: LISINOPRIL 10 MG TABLET PO SCH ×2 (09:16→20:34)
[2021-04-14] MEDS: METOPROLOL TARTRATE 50 MG TABLET PO SCH ×2 (09:16→20:41)
[2021-04-14] MEDS: risperiDONE 1 MG TABLET PO SCH ×3 (09:17→17:43)
[2021-04-14] MEDS: LITHIUM CARBONATE 150 MG CAPSULE PO SCH ×3 (09:17→17:45)
[2021-04-14] MEDS: GLIMEPIRIDE 2 MG TABLET PO SCH (09:17)
[2021-04-14 16:42] VITALS: BP 128/56
[2021-04-14] MEDS: INSULIN REGULAR, HUMAN 300 UNIT/3 ML VIAL SQ PRN (17:48)
--- NOTE | 2021-04-14 20:05 | NUR ---
GPS: As reported by day shift nurse pt.has been having loose stools x4 now. Stool is watery,loose and mushy. Pt.denies abd.discomfort. Afebrile. Assisted to the bathroom as needed. made aware with orders,carried-out. Will continue to monitor.
[2021-04-14 20:31] VITALS: BP 140/72
[2021-04-14] MEDS: LOPERAMIDE HCL 2 MG CAPSULE PO PRN (20:54)
--- NOTE | 2021-04-14 23:24 | NUR ---
GPS: Pt.asleep during rounds. No further diarrhea episodes noted so far. No N/V,abd.discomfort verbalized earlier when he was awake. Fluids betty.well. Will continue to monitor.
[2021-04-15 06:20] LABS: HEMATOCRIT 37.4 % (36.7-47.1); MEAN CORPUSCULAR HEMOGLOBIN 28.1 uug (23.8-33.4); MEAN CORPUSCULAR VOLUME 85.7 fL (73.0-96.2); PLATELET COUNT (AUTO) 195 K/uL (152-348)
[2021-04-15] MEDS: BLOOD SUGAR DIAGNOSTIC 1 EACH STRIP VI SCH ×5 (06:31→20:28)
[2021-04-15 06:57] LABS: BILIRUBIN,TOTAL 0.3 mg/dL (0.2-1.0); CREATININE 1.2 mg/dL (0.6-1.3); POTASSIUM 4.2 mmol/L (3.5-5.1); TOTAL PROTEIN, SERUM 8.3 g/dL (6.4-8.2)
[2021-04-15 08:08] VITALS: BP 118/68
[2021-04-15] MEDS: METFORMIN HCL 500 MG TABLET PO SCH ×2 (08:28→18:32)
[2021-04-15] MEDS: LITHIUM CARBONATE 150 MG CAPSULE PO SCH ×3 (08:28→18:32)
[2021-04-15] MEDS: FAMOTIDINE 20 MG TABLET PO SCH (08:28)
[2021-04-15] MEDS: GABAPENTIN 300 MG CAPSULE PO SCH ×3 (08:28→18:32)
[2021-04-15] MEDS: GLIMEPIRIDE 2 MG TABLET PO SCH (08:28)
[2021-04-15] MEDS: risperiDONE 1 MG TABLET PO SCH ×3 (08:28→18:32)
[2021-04-15] MEDS: LISINOPRIL 10 MG TABLET PO SCH ×2 (08:29→20:28)
[2021-04-15] MEDS: METOPROLOL TARTRATE 50 MG TABLET PO SCH ×2 (08:29→20:27)
[2021-04-15] MEDS: MUPIROCIN 2% OINT 22 GM TUBE NS SCH ×2 (08:30→17:08)
[2021-04-15] MEDS: INSULIN REGULAR, HUMAN 300 UNIT/3 ML VIAL SQ PRN ×2 (11:44→17:01)
[2021-04-15] MEDS: ONDANSETRON ODT 4 MG TAB.RAPDIS SL PRN (13:41)
[2021-04-15 15:44] VITALS: BP 108/57
[2021-04-15 20:00] VITALS: BP 87/50
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
[2021-04-16] MEDS: BLOOD SUGAR DIAGNOSTIC 1 EACH STRIP VI SCH ×4 (06:40→20:56)
[2021-04-16 07:35] VITALS: BP 158/85
[2021-04-16] MEDS: GLIMEPIRIDE 2 MG TABLET PO SCH (08:31)
[2021-04-16] MEDS: METOPROLOL TARTRATE 50 MG TABLET PO SCH ×2 (08:31→21:05)
[2021-04-16] MEDS: risperiDONE 1 MG TABLET PO SCH ×3 (08:31→16:29)
[2021-04-16] MEDS: GABAPENTIN 300 MG CAPSULE PO SCH ×3 (08:31→16:29)
[2021-04-16] MEDS: FAMOTIDINE 20 MG TABLET PO SCH (08:31)
[2021-04-16] MEDS: LITHIUM CARBONATE 150 MG CAPSULE PO SCH ×3 (08:31→16:30)
[2021-04-16] MEDS: METFORMIN HCL 500 MG TABLET PO SCH ×2 (08:31→17:02)
[2021-04-16] MEDS: LISINOPRIL 10 MG TABLET PO SCH ×2 (08:32→21:05)
[2021-04-16] MEDS: INSULIN REGULAR, HUMAN 300 UNIT/3 ML VIAL SQ PRN ×3 (08:32→17:03)
[2021-04-16] MEDS: MUPIROCIN 2% OINT 22 GM TUBE NS SCH ×2 (08:33→16:21)
[2021-04-16] MEDS: ONDANSETRON ODT 4 MG TAB.RAPDIS SL PRN (11:21)
--- NOTE | 2021-04-16 14:40 | NUR ---
GPS: Nursing Notes: Thought Disorder: Patient is awake and responding to his name, disoriented to time, impaired judgment, needs assistance with ADL's, compliant with his medications, disorganized, episode of disrobing in the hallway, minimal participation in therapeutic groups, unable to formulate a viable plan for self care, believes that he is leaving today, redirected and reoriented during shift, low energy level, using a w/c to move around the unit, continue to monitor for safety, continue with treatment plan.
[2021-04-16 15:57] VITALS: BP 94/53
[2021-04-16] MEDS ORDERED: INSULIN GLARGINE,HUM 300 UNITS/3 ML CARTRIDGE SQ SCH (21:00)
[2021-04-16 21:03] VITALS: BP 129/57
[2021-04-16 21:04] VITALS: BP 129/57
[2021-04-17] MEDS: BLOOD SUGAR DIAGNOSTIC 1 EACH STRIP VI SCH ×5 (06:09→21:51)
[2021-04-17 07:57] VITALS: BP 105/48
[2021-04-17] MEDS: METOPROLOL TARTRATE 50 MG TABLET PO SCH ×2 (09:00→20:33)
[2021-04-17] MEDS: LISINOPRIL 10 MG TABLET PO SCH ×2 (09:00→20:34)
[2021-04-17] MEDS: GLIMEPIRIDE 2 MG TABLET PO SCH (11:56)
[2021-04-17] MEDS: risperiDONE 1 MG TABLET PO SCH ×3 (11:56→16:58)
[2021-04-17] MEDS: METFORMIN HCL 500 MG TABLET PO SCH ×2 (11:56→17:08)
[2021-04-17] MEDS: GABAPENTIN 300 MG CAPSULE PO SCH ×3 (11:57→16:58)
[2021-04-17] MEDS: MUPIROCIN 2% OINT 22 GM TUBE NS SCH ×2 (11:57→16:58)
[2021-04-17] MEDS: FAMOTIDINE 20 MG TABLET PO SCH (11:57)
--- NOTE | 2021-04-17 12:45 | NUR ---
SW Facility Contact SW called [facility] [address] [facility], [place] [address] ([phone]) and spoke with Aurea, administrative project coordinator, who stated pt is welcome back to the facility when he is ready for discharge.
[2021-04-17 15:56] VITALS: BP 128/57
[2021-04-17] MEDS: LOPERAMIDE HCL 2 MG CAPSULE PO PRN ×2 (17:07→21:36)
[2021-04-17] MEDS: INSULIN REGULAR, HUMAN 300 UNIT/3 ML VIAL SQ PRN (17:10)
[2021-04-17 19:53] VITALS: BP 104/68
[2021-04-17] MEDS: TEMAZEPAM 7.5 MG CAPSULE PO PRN (21:37)
[2021-04-18] MEDS: BLOOD SUGAR DIAGNOSTIC 1 EACH STRIP VI SCH ×4 (06:58→20:27)
[2021-04-18 08:00] VITALS: BP 106/56
[2021-04-18] MEDS: LISINOPRIL 10 MG TABLET PO SCH ×2 (09:00→20:27)
[2021-04-18] MEDS: METOPROLOL TARTRATE 50 MG TABLET PO SCH ×2 (09:00→20:28)
[2021-04-18] MEDS: METFORMIN HCL 500 MG TABLET PO SCH ×2 (10:45→17:28)
[2021-04-18] MEDS: FAMOTIDINE 20 MG TABLET PO SCH (10:47)
[2021-04-18] MEDS: GABAPENTIN 300 MG CAPSULE PO SCH ×3 (10:47→17:28)
[2021-04-18] MEDS: risperiDONE 1 MG TABLET PO SCH ×3 (10:48→17:28)
[2021-04-18] MEDS: MUPIROCIN 2% OINT 22 GM TUBE NS SCH ×2 (10:48→17:30)
[2021-04-18] MEDS: GLIMEPIRIDE 2 MG TABLET PO SCH (10:48)
[2021-04-18] MEDS: INSULIN REGULAR, HUMAN 300 UNIT/3 ML VIAL SQ PRN (14:32)
[2021-04-18 15:42] VITALS: BP 104/61
--- NOTE | 2021-04-18 18:55 | NUR ---
GPS: PT AWAKE, ALERT AND VERBALLY RESPONSIVE. STAYED ON JENAN-CHAIR FOR SAFETY. PT UNSTEADY WITH AMBULATION. NEEDS ASSISTANCE WITH GOING TO BATHROOM. PT PLEASANT, QUIET AND COOPERATIVE WITH CARE AND COMPLIANT WITH MEDICATIONS. POOR JUDGEMENT. BLANK STARES NOTED AT TIMES.
[2021-04-18 20:15] VITALS: BP 120/60
[2021-04-18] MEDS: TEMAZEPAM 7.5 MG CAPSULE PO PRN (21:35)
--- NOTE | 2021-04-19 04:02 | NUR ---
Received to care, up in cleveland chair for safety. Pleasant and cooperative. Calm and compliant with medications, treatments, and all care rendered. PRN Restoril given at 2135, prior to going to bed. He has slept well most of noght, and continues to sleep. Bed alarm armed for safety. No distress noted.
[2021-04-19] MEDS: BLOOD SUGAR DIAGNOSTIC 1 EACH STRIP VI SCH ×4 (07:05→21:00)
[2021-04-19 07:20] LABS: HEMATOCRIT 35.9 % (36.7-47.1); MEAN CORPUSCULAR HEMOGLOBIN 28.1 uug (23.8-33.4); MEAN CORPUSCULAR VOLUME 85.7 fL (73.0-96.2); PLATELET COUNT (AUTO) 184 K/uL (152-348)
[2021-04-19 07:30] VITALS: BP 124/59
[2021-04-19 07:30] LABS: BILIRUBIN,TOTAL 0.3 mg/dL (0.2-1.0); CREATININE 1.2 mg/dL (0.6-1.3); POTASSIUM 4.9 mmol/L (3.5-5.1); TOTAL PROTEIN, SERUM 7.6 g/dL (6.4-8.2)
[2021-04-19] MEDS: GLIMEPIRIDE 2 MG TABLET PO SCH (08:32)
[2021-04-19] MEDS: METFORMIN HCL 500 MG TABLET PO SCH ×2 (08:32→17:01)
[2021-04-19] MEDS: METOPROLOL TARTRATE 50 MG TABLET PO SCH ×2 (08:32→20:39)
[2021-04-19] MEDS: GABAPENTIN 300 MG CAPSULE PO SCH ×3 (08:33→17:01)
[2021-04-19] MEDS: risperiDONE 1 MG TABLET PO SCH ×3 (08:33→17:01)
[2021-04-19] MEDS: LISINOPRIL 10 MG TABLET PO SCH ×2 (08:33→20:40)
[2021-04-19] MEDS: FAMOTIDINE 20 MG TABLET PO SCH (08:33)
[2021-04-19] MEDS: MUPIROCIN 2% OINT 22 GM TUBE NS SCH ×2 (08:34→17:01)
[2021-04-19] MEDS: INSULIN REGULAR, HUMAN 300 UNIT/3 ML VIAL SQ PRN ×2 (13:26→17:11)
[2021-04-19 16:00] VITALS: BP 95/53
--- NOTE | 2021-04-19 17:37 | NUR ---
GPS: PT ALERT AND ORIENTED. COOPERATIVE WITH CARE AND COMPLIANT WITH MEDICATIONS. ON GERICHAIR FOR SAFETY. PT UNSTEADY AND NEEDS ASSISTANCE WITH AMBULATION WHEN GOING TO BATHROOM. DENIES ANY PAIN OR DISCOMFORT. NO AGRESSIVE BEHAVIOR NOTED.
[2021-04-19 20:13] VITALS: BP 109/55
[2021-04-20] MEDS: BLOOD SUGAR DIAGNOSTIC 1 EACH STRIP VI SCH ×4 (06:35→21:04)
[2021-04-20 07:30] VITALS: BP 160/73
[2021-04-20] MEDS: METFORMIN HCL 500 MG TABLET PO SCH ×2 (08:14→18:00)
[2021-04-20] MEDS: FAMOTIDINE 20 MG TABLET PO SCH (08:14)
[2021-04-20] MEDS: LISINOPRIL 10 MG TABLET PO SCH ×2 (08:14→21:05)
[2021-04-20] MEDS: GABAPENTIN 300 MG CAPSULE PO SCH ×2 (08:14→12:56)
[2021-04-20] MEDS: risperiDONE 1 MG TABLET PO SCH ×2 (08:14→12:56)
[2021-04-20] MEDS: GLIMEPIRIDE 2 MG TABLET PO SCH (08:15)
[2021-04-20] MEDS: METOPROLOL TARTRATE 50 MG TABLET PO SCH ×2 (08:22→21:05)
[2021-04-20] MEDS: MUPIROCIN 2% OINT 22 GM TUBE NS SCH (08:24)
[2021-04-20] MEDS: INSULIN REGULAR, HUMAN 300 UNIT/3 ML VIAL SQ PRN (13:03)
[2021-04-20 15:14] LABS: HEMATOCRIT 32.2 % (36.7-47.1); MEAN CORPUSCULAR VOLUME 86.1 fL (73.0-96.2); PLATELET COUNT (AUTO) 182 K/uL (152-348)
[2021-04-20 15:20] LABS: CREATININE 1.3 mg/dL (0.6-1.3); POTASSIUM 5.2 mmol/L (3.5-5.1)
[2021-04-20 15:26] LABS: BILIRUBIN,TOTAL 0.2 mg/dL (0.2-1.0); TOTAL PROTEIN, SERUM 6.9 g/dL (6.4-8.2)
[2021-04-20 16:26] LABS: *BILIRUBIN,URIN NEGATIVE (NEGATIVE); *CLARITY,URINE CLEAR (CLEAR); *COLOR,URINE YELLOW (YELLOW); *KETONES,URINE NEGATIVE (NEGATIVE); *UROBILINOGEN,URINE 0.2 E.U./dl (NORMAL); LEUKOCYTE ESTERASE ,URINE NEGATIVE (NEGATIVE); NITRITE, URINE NEGATIVE (NEGATIVE); PH,URINE 5.5 (5.0-8.0); UGLUCOSE NEGATIVE (NEGATIVE)
[2021-04-20 16:27] LABS: *BLOOD, URINE TRACE (NEGATIVE)
[2021-04-20 16:37] LABS: BACTERIA,URINE NONE SEEN /HPF (NONE SEEN); SQUAMOUS EPITHELIAL CELL,UR FEW /HPF (NONE SEEN); WBC,URINE 0-3 /HPF (0-3)
[2021-04-20 16:53] VITALS: BP 103/54
[2021-04-20] MEDS: risperiDONE 0.5 MG TABLET PO SCH (17:00)
[2021-04-20] MEDS: GABAPENTIN 100 MG CAPSULE PO SCH (17:00)
[2021-04-20] MEDS ORDERED: IV NORMAL SALINE 500 ML IV ONE (17:00)
--- NOTE | 2021-04-20 18:43 | NUR ---
GPS: PT ALERT AND VERBALLY RESPONSIVE TO NAME. ACCUCHECK DUE AT 1658, CHECKED WITH RESULT OF BS 41MG/DL. PT GIVEN 2 ORANGE JUICE WITH 5 PACKETS OF SUGAR AND REPORTED TO TIMMY HAMM NP. RECHECKED PT BS AFTER 15 MINS. WENT UP TO 64MG/DL. PT GIVEN DINNER, ATE 100% OF THE MEAL. PT STATED " I LOVE THE FOOD". RECHECKED BLOOD SUGAR AFTER 30 MINS AND PT BS WENT UP 154MG/DL. TIMMY HAMM NP MADE AWARE. PT REFUSED METFORMIN AND GABAPENTIN AND RISPERDAL PT IS SEDATED. PT ON BED, WARM TO TOUCH AND DENIES ANY DISCOMFORT. COOPERATIVE WITH CARE. WILL MONITOR PT
[2021-04-20 20:07] VITALS: BP 136/62
[2021-04-20] MEDS: TEMAZEPAM 7.5 MG CAPSULE PO PRN (21:05)
[2021-04-21] MEDS ORDERED: IV NORMAL SALINE 500 ML IV ONE (01:45)
--- NOTE | 2021-04-21 05:20 | NUR ---
Received to care, lying in bed, pleasant and alert. He became restless, attempting to get out of bed, so he was placede in cleveland chair for safety, and given PRN restoril. He Slept well, eventually being assisted back to bed. IV NS 500 ML was infused, per orders from yesterday evening. As of now, he continues to sleep. No distress noted.
[2021-04-21] MEDS: BLOOD SUGAR DIAGNOSTIC 1 EACH STRIP VI SCH ×5 (06:42→21:11)
[2021-04-21 07:30] VITALS: BP 148/67
[2021-04-21 07:41] LABS: HEMATOCRIT 35.3 % (36.7-47.1); MEAN CORPUSCULAR HEMOGLOBIN 28.3 uug (23.8-33.4); MEAN CORPUSCULAR VOLUME 85.9 fL (73.0-96.2); PLATELET COUNT (AUTO) 183 K/uL (152-348)
[2021-04-21 07:56] LABS: CREATININE 1.1 mg/dL (0.6-1.3); MAGNESIUM 1.4 mg/dL (1.8-2.4); PHOSPHOROUS 3.5 mg/dL (2.5-4.9); POTASSIUM 5.4 mmol/L (3.5-5.1)
[2021-04-21] MEDS: FAMOTIDINE 20 MG TABLET PO SCH (11:35)
[2021-04-21] MEDS: METOPROLOL TARTRATE 50 MG TABLET PO SCH ×2 (11:36→20:57)
[2021-04-21] MEDS: LISINOPRIL 10 MG TABLET PO SCH ×2 (11:37→20:56)
[2021-04-21] MEDS: GABAPENTIN 100 MG CAPSULE PO SCH ×2 (11:38→12:47)
[2021-04-21] MEDS: METFORMIN HCL 500 MG TABLET PO SCH ×2 (11:40→18:00)
[2021-04-21] MEDS: risperiDONE 0.5 MG TABLET PO SCH ×3 (11:40→17:00)
[2021-04-21] MEDS: GLIMEPIRIDE 2 MG TABLET PO SCH (11:41)
[2021-04-21] MEDS ORDERED: MAGNESIUM OXIDE 400 MG TABLET PO ONE (12:00)
[2021-04-21] MEDS: INSULIN REGULAR, HUMAN 300 UNIT/3 ML VIAL SQ PRN ×2 (12:48→21:01)
[2021-04-21 15:00] VITALS: BP 123/82
[2021-04-21 16:15] VITALS: BP 130/55
[2021-04-21] MEDS ORDERED: SODIUM POLYSTYRENE SULFONATE 15 G/60 ML LIQUID UDC PO ONE (19:00)
[2021-04-21 20:30] VITALS: BP 161/77
[2021-04-21] MEDS: LORAZEPAM 0.5 MG TABLET PO PRN (22:00)
[2021-04-21] MEDS: TEMAZEPAM 7.5 MG CAPSULE PO PRN (23:30)
[2021-04-22] MEDS: LORAZEPAM 0.5 MG TABLET PO PRN ×3 (03:19→21:37)
[2021-04-22 07:30] VITALS: BP 108/57
[2021-04-22] MEDS: BLOOD SUGAR DIAGNOSTIC 1 EACH STRIP VI SCH ×4 (08:28→21:43)
[2021-04-22] MEDS: GLIMEPIRIDE 2 MG TABLET PO SCH (08:29)
[2021-04-22] MEDS: METFORMIN HCL 500 MG TABLET PO SCH ×2 (08:29→18:14)
[2021-04-22] MEDS: FAMOTIDINE 20 MG TABLET PO SCH (08:34)
[2021-04-22] MEDS: METOPROLOL TARTRATE 50 MG TABLET PO SCH (08:35)
[2021-04-22] MEDS: LISINOPRIL 10 MG TABLET PO SCH ×2 (08:36→21:38)
[2021-04-22] MEDS: INSULIN REGULAR, HUMAN 300 UNIT/3 ML VIAL SQ PRN ×2 (09:04→11:12)
[2021-04-22] MEDS: risperiDONE 0.25 MG TABLET PO SCH ×2 (09:09→18:14)
[2021-04-22 14:39] LABS: HEMATOCRIT 35.1 % (36.7-47.1); MEAN CORPUSCULAR HEMOGLOBIN 28.2 uug (23.8-33.4); MEAN CORPUSCULAR VOLUME 85.5 fL (73.0-96.2); PLATELET COUNT (AUTO) 202 K/uL (152-348)
[2021-04-22 14:46] LABS: CREATININE 1.2 mg/dL (0.6-1.3); POTASSIUM 4.3 mmol/L (3.5-5.1)
[2021-04-22 16:00] VITALS: BP 128/65
--- NOTE | 2021-04-22 18:51 | NUR ---
patient vomited x1, awake, responsive, no sob, resp even nonlabored,skin warm and dry to touch, vitals bp 144/78, pulse 64, resp 16, temp 97.8, o2 saturation at room is 99%, patient denied any pain, stated he is little nauseous, no distress noted at this time, will endorse to next shift accordingly.
[2021-04-22] MEDS: ONDANSETRON ODT 4 MG TAB.RAPDIS SL PRN (18:59)
--- NOTE | 2021-04-22 19:19 | NUR ---
jung administered as ordered, endorsed to continue to monitor Addendum: 04/22/21 at 1920 by TAY HERMAN RN, RN no acute distress noted Addendum: 04/22/21 at 8 by TAY HERMAN RN, RN patient is awake, responsive to verbal stimuli, sitting in [facility], stated his name.
[2021-04-22 20:00] VITALS: BP 151/71
[2021-04-23] MEDS: LORAZEPAM 0.5 MG TABLET PO PRN (05:02)
[2021-04-23] MEDS: BLOOD SUGAR DIAGNOSTIC 1 EACH STRIP VI SCH ×4 (06:48→21:56)
[2021-04-23] MEDS: GLIMEPIRIDE 2 MG TABLET PO SCH (08:19)
[2021-04-23] MEDS: METFORMIN HCL 500 MG TABLET PO SCH ×2 (08:20→18:06)
[2021-04-23] MEDS: LISINOPRIL 10 MG TABLET PO SCH ×2 (08:21→21:56)
[2021-04-23] MEDS: risperiDONE 0.25 MG TABLET PO SCH ×2 (08:21→17:00)
[2021-04-23] MEDS: FAMOTIDINE 20 MG TABLET PO SCH (08:21)
[2021-04-23 08:22] VITALS: BP 131/65
[2021-04-23] MEDS: MUPIROCIN 2% OINT 22 GM TUBE NS SCH ×2 (08:26→21:00)
[2021-04-23 09:38] LABS: HEMATOCRIT 36.8 % (36.7-47.1); MEAN CORPUSCULAR HEMOGLOBIN 28.1 uug (23.8-33.4); MEAN CORPUSCULAR VOLUME 85.6 fL (73.0-96.2); PLATELET COUNT (AUTO) 200 K/uL (152-348)
[2021-04-23 09:49] LABS: CREATININE 1.2 mg/dL (0.6-1.3); MAGNESIUM 1.6 mg/dL (1.8-2.4); PHOSPHOROUS 3.9 mg/dL (2.5-4.9); POTASSIUM 4.5 mmol/L (3.5-5.1)
[2021-04-23] MEDS: INSULIN REGULAR, HUMAN 300 UNIT/3 ML VIAL SQ PRN (12:08)
[2021-04-23] MEDS: ONDANSETRON ODT 4 MG TAB.RAPDIS SL PRN ×3 (15:02→16:07)
--- NOTE | 2021-04-23 15:05 | NUR ---
Patient is given Zofran 4 mg at 15:02 for nausea, will be monitored for effectiveness.
--- NOTE | 2021-04-23 15:08 | NUR ---
Got miscellaneous order to hold sedation medication at this time.
--- NOTE | 2021-04-23 15:15 | NUR ---
Pt. is received awake in the hallway. A/O X 2 -3 to person, place. Pt. blood glucose is 393, 10 units given per sliding scale. Compliant with medications. Lower extremities weakness, unsteady gait, ambulates with assistance of 2 people. Pt. is encourage to verbalize concerns. Fall and safety precautions implemented.
[2021-04-23 15:59] VITALS: BP 155/69
[2021-04-23] MEDS ORDERED: MAGNESIUM OXIDE 400 MG TABLET PO ONE (16:45)
[2021-04-23 20:14] VITALS: BP 155/76
[2021-04-23] MEDS: TEMAZEPAM 7.5 MG CAPSULE PO PRN (21:55)
[2021-04-24 07:34] VITALS: BP 123/65
[2021-04-24] MEDS: BLOOD SUGAR DIAGNOSTIC 1 EACH STRIP VI SCH ×3 (07:55→17:05)
[2021-04-24] MEDS: METFORMIN HCL 500 MG TABLET PO SCH ×2 (08:00→18:19)
[2021-04-24] MEDS: MUPIROCIN 2% OINT 22 GM TUBE NS SCH ×2 (09:00→21:00)
[2021-04-24] MEDS: risperiDONE 0.25 MG TABLET PO SCH ×2 (10:04→18:19)
[2021-04-24] MEDS: FAMOTIDINE 20 MG TABLET PO SCH (10:04)
[2021-04-24] MEDS: GLIMEPIRIDE 2 MG TABLET PO SCH (10:04)
[2021-04-24] MEDS: LISINOPRIL 10 MG TABLET PO SCH (10:06)
[2021-04-24] MEDS: INSULIN REGULAR, HUMAN 300 UNIT/3 ML VIAL SQ PRN (12:33)
--- NOTE | 2021-04-24 15:00 | NUR ---
PATIENT UP IN JENNA CHAIR BEING VERY LOUD [id number] TABLE YELLING OUT UNCONTROLLABLE. aCCUCHECK ON HIGH SIDE COVEITH REGULAR INSULIN, NO S/S OF GLYCEMIC REACTION , cONTINUE TO MONITOR FOR SAFETY
[2021-04-24 16:16] VITALS: BP 114/63
[2021-04-24 20:02] VITALS: BP 140/75
[2021-04-24] MEDS ORDERED: risperiDONE 0.5 MG TABLET PO SCH (21:00)
[2021-04-24] MEDS ORDERED: TEMAZEPAM 7.5 MG CAPSULE PO SCH (21:00)
[2021-04-25] MEDS: BLOOD SUGAR DIAGNOSTIC 1 EACH STRIP VI SCH ×5 (00:20→20:50)
[2021-04-25] MEDS: LISINOPRIL 10 MG TABLET PO SCH ×3 (00:25→20:51)
[2021-04-25] MEDS: INSULIN REGULAR, HUMAN 300 UNIT/3 ML VIAL SQ PRN ×3 (00:34→20:57)
[2021-04-25] MEDS: LORAZEPAM 0.5 MG TABLET PO PRN (00:35)
[2021-04-25 07:58] VITALS: BP 115/65
[2021-04-25] MEDS: GLIMEPIRIDE 2 MG TABLET PO SCH (09:40)
[2021-04-25] MEDS: risperiDONE 0.25 MG TABLET PO SCH ×2 (09:41→17:22)
[2021-04-25] MEDS: FAMOTIDINE 20 MG TABLET PO SCH (09:41)
[2021-04-25] MEDS: MUPIROCIN 2% OINT 22 GM TUBE NS SCH ×2 (09:43→20:55)
[2021-04-25] MEDS: METFORMIN HCL 500 MG TABLET PO SCH ×2 (09:51→17:22)
[2021-04-25 16:29] VITALS: BP 134/64
--- NOTE | 2021-04-25 18:17 | NUR ---
recd patient up in cleveland chair lethargic but easily arousable to verbal and tactile stimuli, a decrease in loudness noted still with periods of delusional thoughts, frequent reoriented to reality, Oral intakefair assisted with meals. Continue to provide a safe environment .
[2021-04-25] MEDS: TEMAZEPAM 15 MG CAPSULE PO SCH (20:52)
[2021-04-25] MEDS: ACETAMINOPHEN 325 MG TABLET PO PRN (20:52)
[2021-04-25] MEDS ORDERED: risperiDONE 1 MG TABLET PO SCH (21:00)
[2021-04-25 21:47] VITALS: BP 142/73
[2021-04-26] MEDS: LORAZEPAM 0.5 MG TABLET PO PRN ×2 (00:32→20:56)
[2021-04-26] MEDS: TEMAZEPAM 7.5 MG CAPSULE PO PRN (02:24)
--- NOTE | 2021-04-26 05:00 | NUR ---
Received to care, up in cleveland chair. Compliant with bedtime medications, including routine Restoril 15 mg. He was assisted to bed several times, but tried to get up by himself, each time. PRN Ativan was given at 0032, with no effect. He remained agitated in the chair. He was then assisted to bed once again, promising to go to sleep, but immediately got up. PRN Restoril 7.5 mg was given at 0224, and he remained agitated, yelling on and off, unable to be redirected. He did not sleep more than 45 minutes all night. He finally fell asleep at 0450, and remains asleep. No distress noted. Will continue to monitor closely.
[2021-04-26] MEDS: BLOOD SUGAR DIAGNOSTIC 1 EACH STRIP VI SCH ×4 (06:24→20:56)
--- NOTE | 2021-04-26 06:25 | NUR ---
Slept around 2.25 hours, the whole night. Is in bed now, sleeping soundly. No distress, noted.
[2021-04-26 07:30] VITALS: BP 146/68
[2021-04-26] MEDS: FAMOTIDINE 20 MG TABLET PO SCH (09:01)
[2021-04-26] MEDS: METFORMIN HCL 500 MG TABLET PO SCH ×2 (09:01→16:52)
[2021-04-26] MEDS: GLIMEPIRIDE 2 MG TABLET PO SCH (09:01)
[2021-04-26] MEDS: LISINOPRIL 10 MG TABLET PO SCH ×2 (09:01→22:03)
[2021-04-26] MEDS: risperiDONE 0.25 MG TABLET PO SCH (09:01)
[2021-04-26] MEDS: MUPIROCIN 2% OINT 22 GM TUBE NS SCH ×2 (09:02→20:57)
[2021-04-26] MEDS: INSULIN REGULAR, HUMAN 300 UNIT/3 ML VIAL SQ PRN ×2 (09:08→12:56)
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
[2021-04-26] MEDS: GABAPENTIN 100 MG CAPSULE PO SCH ×2 (12:45→16:52)
[2021-04-26] MEDS: risperiDONE 0.5 MG TABLET PO SCH ×2 (12:45→16:52)
[2021-04-26 16:00] VITALS: BP 147/80
--- NOTE | 2021-04-26 19:05 | NUR ---
GP: PT FIXATED WITH FOOD, TALKING ABOUT PIZZA WITH ESCARGO AND ASKING FOR COCA COLA. PT DENIES ANY PAIN OR DISCOMFORT. PT ASSISTED WITH GOING TO BATHROOM. ASSISTED WITH FEEDING.
[2021-04-26 19:57] VITALS: BP 135/73
[2021-04-26] MEDS: risperiDONE 2 MG TABLET PO SCH (22:02)
[2021-04-26] MEDS: TEMAZEPAM 15 MG CAPSULE PO SCH (22:02)
[2021-04-26] MEDS: ACETAMINOPHEN 325 MG TABLET PO PRN (22:03)
[2021-04-27] MEDS: TEMAZEPAM 7.5 MG CAPSULE PO PRN (00:14)
--- NOTE | 2021-04-27 02:01 | NUR ---
Received to care, up in cleveland chair, anxious, but pleasant upon approach. Compliant with medications. PRN ativan and restoril were given. He eventually went to sleep, in his bed, and continues to sleep. No distress, noted.
[2021-04-27] MEDS: BLOOD SUGAR DIAGNOSTIC 1 EACH STRIP VI SCH ×4 (06:32→21:21)
[2021-04-27 07:29] LABS: HEMATOCRIT 35.6 % (36.7-47.1); MEAN CORPUSCULAR HEMOGLOBIN 28.2 uug (23.8-33.4); MEAN CORPUSCULAR VOLUME 86.3 fL (73.0-96.2); PLATELET COUNT (AUTO) 175 K/uL (152-348)
[2021-04-27 07:30] VITALS: BP 93/59
[2021-04-27 07:55] LABS: BILIRUBIN,TOTAL 0.3 mg/dL (0.2-1.0); CREATININE 1.2 mg/dL (0.6-1.3); POTASSIUM 5.1 mmol/L (3.5-5.1); TOTAL PROTEIN, SERUM 7.7 g/dL (6.4-8.2)
[2021-04-27] MEDS: METFORMIN HCL 500 MG TABLET PO SCH ×2 (08:22→17:28)
[2021-04-27] MEDS: GABAPENTIN 100 MG CAPSULE PO SCH ×2 (08:22→17:28)
[2021-04-27] MEDS: FAMOTIDINE 20 MG TABLET PO SCH (08:23)
[2021-04-27] MEDS: risperiDONE 0.5 MG TABLET PO SCH ×3 (08:23→17:28)
[2021-04-27] MEDS: GLIMEPIRIDE 2 MG TABLET PO SCH (08:23)
[2021-04-27] MEDS: LISINOPRIL 10 MG TABLET PO SCH ×2 (08:23→20:45)
[2021-04-27] MEDS: MUPIROCIN 2% OINT 22 GM TUBE NS SCH ×2 (08:23→20:43)
--- NOTE | 2021-04-27 09:00 | NUR ---
GPS: PT RECEIVED TODAY ON JENNA-CHAIR FOR SAFETY. PT QUIET AND CALM. DENIES ANY PAIN OR DISCOMFORT. ATE BREAKFAST AND MEDS TOLERATED WELL. PER LAST NIGHT STAFF REPORT, PT HAD 1 EPISODE OF DIARRHEA. WILL MONITOR PT.
--- NOTE | 2021-04-27 09:03 | NUR ---
ABEL Discharge Note Pt will be discharged to [facility] [address] [place] [address] ([phone]) via Ambulance transportation at 12PM. ABEL spoke with Julita, admin coordinator at the facility, who states they are ready to accept the patient today. Pt is aware and agreeable with discharge plans. Pt is alert and oriented x1, is unable to plan for self-care at this time; however, is willing to accept care at [facility]. Pt denies any suicidal or homicidal ideation. Pt will follow-up at the facility with Dr. Padilla Psychiatrist and Dr. Hummel Fire Claims Adjuster. Pt presents with calm mood and congruent affect.
--- NOTE | 2021-04-27 11:00 | NUR ---
GPS: PT IS FOR DISCHARGE TODAY FOR H[facility]ID[facility] MANOR. PT ALERT AND VERBALLY RESPONSIVE, WAS ASSISTED TO THE BATHROOM AND PT HAD AN EPISODE OF LIQUID SMELLY STOOL. FLUID INTAKE ENCOURAGED AND WAS GIVEN AND TOLERATED WELL.
[2021-04-27] MEDS ORDERED: LOPERAMIDE HCL 2 MG CAPSULE PO ONE (11:45)
[2021-04-27] MEDS ORDERED: IV NORMAL SALINE 500 ML IV ONE (12:00)
--- NOTE | 2021-04-27 12:20 | NUR ---
GPS: PT HAVE 3 EPISODES OF WATERY LOOSE STOOL. MD TATI SILVA ORDERED IMODIUM 2MG 2 CAPSULES ONE TIME. SENT STOOL SPECIMEN FOR CULTURE TO RULE OUT C DIFF. ORDERED IV NS 0.9% 500ML BOLUS ADMINISTERED AND PER AND DR CONLEY TO TRANSFER PT TO MED SURG UNIT FOR FURTHER MONITORING. LATEST BP 105/67 HR 104 R 18 T 97.8F 98% O2SAT. WILL MONITOR PT.
--- NOTE | 2021-04-27 12:35 | NUR ---
ABEL Discharge Note Update Pt's discharge is discontinued to [facility] [address] [place] [address] [phone]) per Dr. Padilla via ambulance tranportation at 12pm. ABEL notified [facility] regarding pt's d/c discontinue until further notice that will be available from business case analyst.
--- NOTE | 2021-04-27 14:00 | NUR ---
GPS: PT ON BED, AWAKE AND VERBALLY RESPONSIVE. DENIES ANY PAIN OR DISCOMFORT. PT ON BOLUS IV NS DRIP. VS BP 121/61 HR 100 R 18 T 97.8 O2SAT 98% RA. CALLED MED SURG UNIT FOR ANY AVAILABLE ROOM, PER MORENA, NURSE, STAFF IS MAXED OUT AND NO AVAILABLE ROOM. INFORMED ANSLEY, AND DR CONLEY. PER ANSLEY JUST TO MONITOR THE PT HERE FOR NOW.
--- NOTE | 2021-04-27 15:28 | NUR ---
GPS: PT ON BED, AWAKE AND ALERT, TRYING TO GET OUT FROM BED. PT VITAL SIGNS BP 134/85 HR 90 R 17 T 97.9F . PT IS MORE ACTIVE NOW. BOLUS IV NS ADMINISTERED ALREADY. STILL WITH RIGHT ARM IV CATHETER LINE IN PLACED.
[2021-04-27 16:36] VITALS: BP 124/70
--- NOTE | 2021-04-27 17:59 | NUR ---
GPS: PT ON GERICHAIR FOR SAFETY. PT BP Addendum: 04/27/21 at 1802 by JANNA SANCHEZ RN ADDENDUM: BP 124/70 T 97.3F HR 94 R 18 O2SAT 98% RA. PT NOTED COUGHING WHEN DRINKING WATER. TO ORDER SPEECH EVALUATION FOR SWALLOWING. PT ALERT AND AWAKE, ABLE TO EAT BY HIMSELF. NO DIARRHEA NOTED AT THIS TIME. MEDS TOLERATED WELL.
--- NOTE | 2021-04-27 18:38 | NUR ---
GPS: INFORMED ANSLEY ABOUT THE STABLE VITAL SIGNS OF THE PT. ANSLEY STATED TO INFORM DR CONLEY AND DR TATI SILVA ABOUT THE PT CONDITION. MD'S INFORMED THROUGH TEXT. PER DR TATI SILVA, PT IS STABLE NOW AND CAN BE DISCHARGE ANYTIME TOMORROW. JUST IN CASE, DIARRHEA COMES BACK, TO GIVE PRN IMODIUM. WAITING FOR DR CONLEY'S RESPONSE.
[2021-04-27 20:03] VITALS: BP 102/52
[2021-04-27] MEDS: LORAZEPAM 0.5 MG TABLET PO PRN (20:33)
[2021-04-27] MEDS: LOPERAMIDE HCL 2 MG CAPSULE PO PRN (20:41)
[2021-04-27] MEDS: TEMAZEPAM 15 MG CAPSULE PO SCH (21:59)
[2021-04-27 22:00] VITALS: BP 102/70
[2021-04-27] MEDS: risperiDONE 2 MG TABLET PO SCH (22:10)
[2021-04-28] MEDS: TEMAZEPAM 15 MG CAPSULE PO SCH (01:43)
[2021-04-28] MEDS: LOPERAMIDE HCL 2 MG CAPSULE PO PRN (02:04)
[2021-04-28 02:30] VITALS: BP 110/60
[2021-04-28] MEDS: TEMAZEPAM 7.5 MG CAPSULE PO PRN (02:47)
--- NOTE | 2021-04-28 04:07 | NUR ---
Received to care at start of shift, up in cleveland chair, at nurses station, needy and attention seeking. B/P 102/52, at start of shift. saltine crackers and 2 bottles of Glucerna were given. B/P WAS 102/70 by 2200. Pt remained very needy, requesting multiple times to be taken to bathroom, and had several episodes of watery stool. 2 doses of PRN Imodium were given, over the course of the evening, until the stools finally stopped, around 0300. All medications were given, except prinivil, and Restoril. Due to increasing anxiety and inability to sleep, PRN ativan was given around 2000, for severe anxiety, and routine Restoril was finally given, at around 0145, and PRN Restoril was given around 0245. He was very restless up to this point, having gone from the chair to the bed and back, several times. He was finally assisted to bed the last time, at around 0330, and has been asleep, ever since. No distress noted. PO fluids were encouraged throughout the night, and last B/P was taken at 0245 was 110/60. no distress noted.
[2021-04-28] MEDS: BLOOD SUGAR DIAGNOSTIC 1 EACH STRIP VI SCH ×4 (06:00→07:54)
--- NOTE | 2021-04-28 07:05 | NUR ---
Received new order from Arlet Ahmadi NP to transfer patient to the medical floor, med surg for Dx. Hypoglycemia. order noted. cigar tobacco processing supervisor was notified. per Nurse kitchen work supervisor she will call unit for bed number. Will continue to monitor closely.
--- NOTE | 2021-04-28 07:10 | NUR ---
Dr Padilla was notified of pts medical status. She said to discontinue to hold, when transferred to the medical floor.
[2021-04-28 07:30] VITALS: BP 110/83
--- NOTE | 2021-04-28 07:58 | NUR ---
AM blood sugar check was 39. Pt was sleepy, and slow to respond. B/P was 120/70, HR 88. Dextrose 50 was given IV at 0617. Pt slowly perked up, and was more alert. BS AT 0640 was 106. 4oz of orange juice was given. BS at 0700 was 84. 4 Oz of orange juice with 4 sugars was given. BS at 0750 was 66. 4 oz of orange juice and 1 sugar was given. pt remains alert and oriented. Report given to oncoming shift.
[2021-04-28] MEDS: METFORMIN HCL 500 MG TABLET PO SCH (08:00)
[2021-04-28] MEDS: GLIMEPIRIDE 2 MG TABLET PO SCH (08:00)
[2021-04-28 09:00] VITALS: BP 110/83
[2021-04-28] MEDS ORDERED: Z GUARD REMEDY PASTE 57 GM TUBE TOP SCH (09:00)
[2021-04-28] MEDS: LISINOPRIL 10 MG TABLET PO SCH (09:00)
[2021-04-28] MEDS: GABAPENTIN 100 MG CAPSULE PO SCH (09:45)
[2021-04-28] MEDS: risperiDONE 0.5 MG TABLET PO SCH (09:45)
[2021-04-28] MEDS: FAMOTIDINE 20 MG TABLET PO SCH (09:45)
[2021-04-28] MEDS: MUPIROCIN 2% OINT 22 GM TUBE NS SCH (09:46)
--- NOTE | 2021-04-28 10:35 | NUR ---
recd patient up in wheel chair c/o wantingto get out of chair frequent redirection given assisted with breakfast and going to bathroom with assist. Pt incontinent of bowel and bladder. Report given to Rajesh TORRES on ,edical floor patient transported to med surg unit via cleveland chair in no acute distress with all belongings.
[2021-04-28] MEDS ORDERED: BLOO-668 IN (11:32)
[2021-04-28] MEDS ORDERED: ACET-2154 PO (11:32)
[2021-04-28] MEDS ORDERED: CLON0.1T PO (11:34)
[2021-04-28] MEDS ORDERED: MAG30ORA PO (11:46)
[2021-04-28] MEDS ORDERED: TEMA15CA PO (11:46)
[2021-04-28] MEDS ORDERED: METF-442 PO (11:46)
[2021-04-28] MEDS ORDERED: LISI10TA29 PO (11:46)
[2021-04-28] MEDS ORDERED: TEMA7.5C2 PO (11:46)
[2021-04-28] MEDS ORDERED: GLIM1TAB PO (11:46)
[2021-04-28] MEDS ORDERED: LORA-258 PO (11:46)
[2021-04-28] MEDS ORDERED: ONDA4VIA52 IV (11:46)
[2021-04-28] MEDS ORDERED: LOPE2CAP40 PO (11:46)
[2021-04-28] MEDS ORDERED: MUPI22OI2 (11:46)
[2021-04-28] MEDS ORDERED: GABA-532 PO (11:46)
[2021-04-28] MEDS ORDERED: NUTRISOURCE FIBER 4 GM PACKET PO SCH (13:00)
[2021-05-01] MEDS ORDERED: NUT.237L36 PO (14:08)
[2021-05-01] MEDS ORDERED: LOPE2CAP40 PO (14:08)
== END 2021-04-28 10:45 | disposition short-term general hospital (02) | DRG 885 ==
LOC: ER 15:15 → GPS 20:35
PROVIDERS: ADMIT Psychiatry & Neurology Psychosomatic Medicine; ATTEND Internal Medicine
DX: F25.0 Schizoaffective disorder, bipolar type (principal); I11.0 Hypertensive heart disease with heart failure; E11.65 Type 2 diabetes mellitus with hyperglycemia; D68.59 Other primary thrombophilia; I50.22 Chronic systolic (congestive) heart failure; E11.42 Type 2 diabetes mellitus with diabetic polyneuropathy; Z90.49 Acquired absence of other specified parts of digestive tract; E11.51 Type 2 diabetes mellitus with diabetic peripheral angiopathy without gangrene; K21.9 Gastro-esophageal reflux disease without esophagitis; E78.5 Hyperlipidemia, unspecified; K52.9 Noninfective gastroenteritis and colitis, unspecified; I11.9 Hypertensive heart disease without heart failure; M19.90 Unspecified osteoarthritis, unspecified site; Z74.09 Other reduced mobility; E11.40 Type 2 diabetes mellitus with diabetic neuropathy, unspecified; Z86.73 Personal history of transient ischemic attack (TIA), and cerebral infarction without residual deficits; Z86.19 Personal history of other infectious and parasitic diseases; Z89.412 Acquired absence of left great toe; Z89.411 Acquired absence of right great toe; I67.2 Cerebral atherosclerosis; L89.90 Pressure ulcer of unspecified site, unspecified stage; Z79.4 Long term (current) use of insulin; Z79.899 Other long term (current) drug therapy
CPT/HCPCS: 36415; 70030-TC; 70450; 71045; 83735; 84100; 84443; 85025; 87086; 93005; 97161; A4663; C1758; G0480; J1815; J3490; J7040; Q0162

== ENCOUNTER 2021-04-28 10:45 | Inpatient (IN) | payer MEDICARE, OTHER ==
[~2021-04-28] VITALS: Ht 170.2 cm; Wt 68.0 kg
[~2021-04-28 10:45] MED LIST changes: -AMLO10TA4 PO; -ATOR20TA PO; -DOCUSATE; +FAMO-132 PO; -FAMO20TA8 PO; +GABA300C PO; -GABA400C PO; +INSU100V28 SQ; +LISI-782 PO; +METF-440 PO; -MINO2.5T PO
[2021-04-28 11:30] VITALS: BP 126/64
[2021-04-28] MEDS ORDERED: ACET-2154 PO (11:32)
[2021-04-28] MEDS ORDERED: BLOO-668 IN (11:32)
[2021-04-28] MEDS ORDERED: CLON0.1T PO (11:34)
[2021-04-28] MEDS ORDERED: METF-442 PO (11:46)
[2021-04-28] MEDS ORDERED: MUPI22OI2 (11:46)
[2021-04-28] MEDS ORDERED: TEMA7.5C2 PO (11:46)
[2021-04-28] MEDS ORDERED: ONDA4VIA52 IV (11:46)
[2021-04-28] MEDS ORDERED: LOPE2CAP40 PO (11:46)
[2021-04-28] MEDS ORDERED: LISI10TA29 PO (11:46)
[2021-04-28] MEDS ORDERED: GABA-532 PO (11:46)
[2021-04-28] MEDS ORDERED: LORA-258 PO (11:46)
[2021-04-28] MEDS ORDERED: TEMA15CA PO (11:46)
[2021-04-28] MEDS ORDERED: GLIM1TAB PO (11:46)
[2021-04-28] MEDS ORDERED: MAG30ORA PO (11:46)
[2021-04-28] MEDS ORDERED: Z GUARD REMEDY PASTE 57 GM TUBE TOP PRN (12:00)
[2021-04-28] MEDS ORDERED: INSULIN REGULAR, HUMAN 300 UNIT/3 ML VIAL SQ PRN (14:30)
[2021-04-28] MEDS ORDERED: DEXTROSE 50% 50 ML DISP.SYRIN IV PRN (14:30)
[2021-04-28 15:45] VITALS: BP 122/63
[2021-04-28] MEDS: IV LACTATED RINGERS SOLUTION 1,000 ML IV PRN (15:58)
--- NOTE | 2021-04-28 16:00 | NUR ---
patient admitted from psych unit, alert to self, noted with diarrhea x3, continue on IV hydration, patient noted with rashes to both gluteal folds, kept clean and dry, wound consult in place, applied z guard as ordered, no acute distress noted.
[2021-04-28] MEDS: BLOOD SUGAR DIAGNOSTIC 1 EACH STRIP VI SCH ×2 (16:45→20:29)
[2021-04-28] MEDS: GABAPENTIN 100 MG CAPSULE PO SCH (16:46)
[2021-04-28] MEDS: DIPHENOXYLATE HCL/ATROP SULF TABLET PO PRN (16:49)
[2021-04-28] MEDS: METFORMIN HCL 500 MG TABLET PO SCH (17:00)
[2021-04-28] MEDS: LORAZEPAM 0.5 MG TABLET PO PRN (19:59)
--- NOTE | 2021-04-28 20:00 | NUR ---
RECEIVED PATIENT AWAKE IN JENNA-CHAIR. ALERT TO SELF ONLY, VERY CONFUSED AND AGITATED. GIVEN ATIVAN 0.5MG PO PRN. VSS. H/L NOTED TO RIGHT FA, DISLODGED AND LEAKING. DENIES PAIN. WILL CONTINUE TO MONITOR AND CLOSELY MONITOR.
[2021-04-28 20:15] VITALS: BP 111/62
[2021-04-28] MEDS: ACETAMINOPHEN 325 MG TABLET PO PRN (20:31)
[2021-04-28] MEDS: LISINOPRIL 10 MG TABLET PO SCH (20:32)
[2021-04-28] MEDS ORDERED: MUPIROCIN 2% OINT 22 GM TUBE NS SCH (21:00)
--- NOTE | 2021-04-28 21:00 | NUR ---
1:1 SITTER FOR SAFETY. PATIENT IS HAVING CONSTANT LOOSE STOOLS, RECEIVED ORDER FOR INSERTION OF FLEXI-SEAL. WILL CONTINUE TO MONITOR AND ASSESS.
[2021-04-28] MEDS: TEMAZEPAM 15 MG CAPSULE PO SCH (21:04)
[2021-04-29 04:15] VITALS: BP 147/60
[2021-04-29] MEDS: IV LACTATED RINGERS SOLUTION 1,000 ML IV PRN ×2 (04:37→16:27)
--- NOTE | 2021-04-29 05:00 | NUR ---
PATIENT AWAKE IN BED., VERY AGITATED AND UNABLE TO REDIRECT. CONSTANTLY TRYING TO PULL OUT IV AND RECTAL TUBE. SITTER AT BEDSIDE. FLEXI-SEAL IN PLACE, PATIENT TOLERATED WELL, WITH GOOD AMOUNT OF STOOL NOTED. PATIENT MONITORED CLOSELY. BED ALARM ON. ALL NEEDS ATTENDED. WILL CONTINUE TO MONITOR AND ASSESS.
--- NOTE | 2021-04-29 06:00 | NUR ---
PATIENT VERY AGITATED, PULLED OUT FLEXI-SEAL. AWARE.
--- NOTE | 2021-04-29 06:10 | NUR ---
SITTER AT BEDSIDE TRYING TO ASSIST PATIENT BACK INTO BED. PATIENT VERY AGITATED AND AGGRESSIVE. PATIENT LOST BALANCE AND SLID DOWN TO THE FLOOR AND BUMPED HIS NOSE ON THE SIDERAIL CAUSING MILD BLEEDING TO NOSE. DR. OWUSU PRESENT AT BEDSIDE. GAVE ORDERS FOR XRAY OF NASAL STRUCTURE. APPROPRIATE PERSONNEL NOTIFIED. VS TAKEN AND WNL. ROM AND ALL EXTREMETIES WNL.
[2021-04-29] MEDS: BLOOD SUGAR DIAGNOSTIC 1 EACH STRIP VI SCH ×4 (06:36→20:21)
[2021-04-29 06:59] LABS: HEMATOCRIT 32.8 % (36.7-47.1); MEAN CORPUSCULAR VOLUME 85.9 fL (73.0-96.2); PLATELET COUNT (AUTO) 164 K/uL (152-348)
[2021-04-29 07:16] LABS: BILIRUBIN,TOTAL 0.3 mg/dL (0.2-1.0); MAGNESIUM 1.4 mg/dL (1.8-2.4); PHOSPHOROUS 1.3 mg/dL (2.5-4.9); POTASSIUM 5.6 mmol/L (3.5-5.1); TOTAL PROTEIN, SERUM 7.5 g/dL (6.4-8.2)
[2021-04-29 08:00] VITALS: BP 142/58
[2021-04-29] MEDS: LISINOPRIL 10 MG TABLET PO SCH ×2 (08:47→21:48)
[2021-04-29] MEDS: METFORMIN HCL 500 MG TABLET PO SCH ×2 (08:47→17:15)
[2021-04-29] MEDS: GABAPENTIN 100 MG CAPSULE PO SCH ×2 (08:47→17:14)
[2021-04-29] MEDS: FAMOTIDINE 20 MG TABLET PO SCH (08:47)
[2021-04-29] MEDS: GLIMEPIRIDE 2 MG TABLET PO SCH (08:48)
[2021-04-29] MEDS: GLUCERNA SHAKE 237 ML CAN PO SCH (08:49)
[2021-04-29] MEDS: MAGNESIUM SULFATE/D5W 100 ML IV SCH ×4 (10:02→13:14)
[2021-04-29 11:46] VITALS: BP 105/57
--- NOTE | 2021-04-29 13:38 | NUR ---
Pt had an incident during pm shift. MD was notified. pt was aggressive and combative with warehouse worker 2nd shift, [facility] and hit his nose on side rail. Xray was completed in am at 0700 for nasal bone. Pt is a/o x 1, confused. He has been cooperative thus far with care and instruction. Sitter at bedside. Pt is currently in cleveland chair. Medications given crushed in applesauce. Pt intermittently sleeps. No signs of acute distress. Iv patent and running fluids and supplements. Magnesium sulfate per MD order. Will continue to monitor.
[2021-04-29 16:00] VITALS: BP 114/64
[2021-04-29] MEDS: ACETAMINOPHEN 325 MG TABLET PO PRN (17:14)
[2021-04-29] MEDS ORDERED: SODIUM PHOSPHATE MM 15 MMOL in IV NORMAL SALINE 250 ML IV ONE (18:00)
--- NOTE | 2021-04-29 18:31 | NUR ---
Pt is calm and currently sleeping in bed. Sitter is at bedside. IV patent and running fluids. No signs of acute distress, call light within reach, Will endorse to restaurant shift supervisor.
--- NOTE | 2021-04-29 19:51 | NUR ---
Received in bed, in semi fowlers position. Sleeping comfortable, is easily arousable. Sitter at bedside. left upper arm IV is patent and intact, infusing Sodium phosphate IV at 63.75 ml/min. On RA, no SOB noted. Safety measures initiated. Needs assessed and met. Call light within reach.
[2021-04-29 20:00] VITALS: BP 152/73
--- NOTE | 2021-04-29 20:40 | NUR ---
Blood sugar 70 at 2020, 1 cup Oj given- only wants to drink 1/2 cup. Blood sugar rechecked and now at 62. One more cup of OJ given- able to tolerate full cup.
--- NOTE | 2021-04-29 21:19 | NUR ---
Blood sugar is 102 at this time, Asymptomatic.
[2021-04-29] MEDS: TEMAZEPAM 15 MG CAPSULE PO SCH (21:48)
--- NOTE | 2021-04-29 23:54 | NUR ---
Patient does not have ectal tube, per AM he removed it. Addendum: 04/29/21 at 8175 by ANMOL CHOI RN Amended: Links added.
[2021-04-30 04:03] VITALS: BP 143/59
[2021-04-30] MEDS: IV LACTATED RINGERS SOLUTION 1,000 ML IV PRN (05:24)
--- NOTE | 2021-04-30 06:13 | NUR ---
Slept well this shift. No SOB, no C/O pain. No significant events this shift. Safety measures continued. Call light within reach. Addendum: 04/30/21 at 0623 by ANMOL CHOI RN Wrong patient.
--- NOTE | 2021-04-30 06:23 | NUR ---
Sitter, 1:1, continued throughout this shift. Patient is awake since 5am, he is restless, irritable and attempting to get out of bed multiple times. Incontinent of bowel times once around 4am and continent around 6am of bladder. Patient also noted with agitation and confusion before midnight, with 3 episodes of diarrhea and one episode of vomiting. Able to sleep well after that. Able to make needs known. Denies any pain or nausea. Noted with itching to lower back, skin care and moisturizer provided. No other significant events this shift. Safety measures continued. Call light within reach
[2021-04-30] MEDS: BLOOD SUGAR DIAGNOSTIC 1 EACH STRIP VI SCH ×4 (06:30→20:22)
--- NOTE | 2021-04-30 06:30 | NUR ---
Blood sugar 68 at 605am, One cup apple juice given and rechecked at this time. BS is 99 now.
[2021-04-30 07:00] LABS: CREATININE 0.8 mg/dL (0.6-1.3); POTASSIUM 4.9 mmol/L (3.5-5.1)
[2021-04-30] MEDS ORDERED: NEUTRA PHOS PACKET PO ONE (07:15)
[2021-04-30] MEDS: IV D5/ 0.9% NACL 1,000 ML IV PRN ×2 (07:43→20:18)
[2021-04-30] MEDS: LISINOPRIL 10 MG TABLET PO SCH ×2 (07:50→20:26)
[2021-04-30] MEDS: METFORMIN HCL 500 MG TABLET PO SCH ×2 (07:50→17:10)
[2021-04-30] MEDS: DIPHENOXYLATE HCL/ATROP SULF TABLET PO PRN (07:50)
[2021-04-30] MEDS: GABAPENTIN 100 MG CAPSULE PO SCH ×2 (07:50→16:45)
[2021-04-30] MEDS: GLIMEPIRIDE 2 MG TABLET PO SCH (07:50)
[2021-04-30] MEDS: GLUCERNA SHAKE 237 ML CAN PO SCH (07:51)
[2021-04-30] MEDS: LORAZEPAM 0.5 MG TABLET PO PRN ×2 (08:03→21:28)
[2021-04-30] MEDS: FAMOTIDINE 20 MG TABLET PO SCH (09:24)
[2021-04-30 11:57] VITALS: BP 149/55
[2021-04-30 15:32] VITALS: BP 149/75
[2021-04-30 15:33] VITALS: BP 140/68
[2021-04-30 20:00] VITALS: BP 129/69
[2021-04-30] MEDS: TEMAZEPAM 15 MG CAPSULE PO SCH (20:18)
--- NOTE | 2021-04-30 20:57 | NUR ---
Received patient sitting up in cleveland chair, with 1:1 sitter. AAO to person, able to answer simple questions. Denies any pain. On RA, no SOB. No facial bruising noted. Patient is continent, per sitter, no further diarrhea. Denies any nausea, no episodes of vomiting. Continues with agitation and restlessness. 1:1 is necessary. Left upper arm IV is intact and patent, infusing D5 NS at 85cc/ hr. Safety measures continued. Call light within reach.
--- NOTE | 2021-04-30 22:45 | NUR ---
Patient given Ativan 0.5mg PO, Non effective at this time. Patient continues to be restless and agitated. With episodes of yelling at 1:1 sitter. De escalation is effective for verbal aggressive behavior but continues to be agitated and restless. Patient transferred from cleveland chair to bed multiple times and continued to attempt to walk on his own, he is a high risk for fall. Taken to toilet with one person assist. Will continue to monitor.
--- NOTE | 2021-05-01 00:45 | NUR ---
Patient is restless, increasingly becoming agitated and verbally aggressive towards staff. PRN Ativan 0.5mg PO is ineffective. Non pharmacological interventions attempted, reorientation, redirection, repositioning from bed to cleveland chair, and toileting is ineffective. Arlet Ahmadi NP made aware. With orders for soft restraints and Haldol 1mg IM time one now. orders noted and carried out.
[2021-05-01] MEDS: HALOPERIDOL LACTATE 5 MG/1 ML VIAL IM PRN ×2 (01:00→01:01)
--- NOTE | 2021-05-01 01:05 | NUR ---
Patient pulled IV line out of left arm.
[2021-05-01] MEDS ORDERED: HALOPERIDOL LACTATE 5 MG/1 ML VIAL IM STA (02:02)
--- NOTE | 2021-05-01 02:05 | NUR ---
Patient continues to be restless, shouting, and increasingly aggressive towards staff. Sitter switched with another staff member. PO fluids provided. Repositioning in bed provided. Haldol IM is not effective. Arlet Ahmadi NP made aware with orders for a repeat dose of Haldol 1mg IM stat. Provided at this time, will continue to closely monitor. 1:[address]
[2021-05-01] MEDS: LORAZEPAM 0.5 MG TABLET PO PRN ×2 (03:29→17:41)
[2021-05-01 04:00] VITALS: BP 175/80
--- NOTE | 2021-05-01 04:02 | NUR ---
Patient continues to be restless and agitated. Ativan 0.5mg PO provided at 0330- not effective at this time. Soft restraints on to both wrist. checked q15 minutes and released one at a time for moments to provide some rest.
--- NOTE | 2021-05-01 04:45 | NUR ---
Attempted to reinsert peripheral IV for fluid infusion, patient is refusing, explained risks.- continuos to refuse.
[2021-05-01] MEDS: BLOOD SUGAR DIAGNOSTIC 1 EACH STRIP VI SCH ×3 (06:32→16:25)
[2021-05-01] MEDS: GLIMEPIRIDE 2 MG TABLET PO SCH (07:49)
[2021-05-01] MEDS: METFORMIN HCL 500 MG TABLET PO SCH ×2 (07:50→17:01)
[2021-05-01] MEDS: FAMOTIDINE 20 MG TABLET PO SCH (07:51)
[2021-05-01] MEDS: GABAPENTIN 100 MG CAPSULE PO SCH ×2 (07:51→16:34)
[2021-05-01] MEDS: LISINOPRIL 10 MG TABLET PO SCH (07:52)
[2021-05-01] MEDS: GLUCERNA SHAKE 237 ML CAN PO SCH (07:53)
[2021-05-01 08:00] VITALS: BP 157/83
--- NOTE | 2021-05-01 08:00 | NUR ---
CONTINUE WITH 1;1 SITTER FOR SAFETY, PATIENT WITH ON AND OFF FORGETFULNESS AND CONFUSION. CLOSELY MONITOR
--- NOTE | 2021-05-01 11:19 | NUR ---
WOUND CARE CONSULT: PT PRESENTS WITH SLIGHT REDNESS TO GLUTEAL CREASE. RECOMMENDATIONS MADE FOR SKIN PROTECTION. DISCUSSED WITH NURSING STAFF. MD IN AGREEMENT WITH PLAN OF CARE.
[2021-05-01 12:00] VITALS: BP 114/72
[2021-05-01] MEDS ORDERED: NEUTRA PHOS PACKET PO ONE (13:30)
[2021-05-01] MEDS ORDERED: MAGNESIUM SULFATE/D5W 100 ML IV SCH ×2 (13:45→15:45)
[2021-05-01] MEDS ORDERED: LOPE2CAP40 PO (14:08)
[2021-05-01] MEDS ORDERED: NUT.237L36 PO (14:08)
[2021-05-01 16:00] VITALS: BP 126/62
--- NOTE | 2021-05-01 17:00 | NUR ---
DR WINNIE OWUSU GAVE DISCHARGE ORDERS BACK TO SNF, UTILIZATION MANAGEMENT RN MADE AWARE WILL CALL [facility] ELLIOTT
--- NOTE | 2021-05-01 18:12 | NUR ---
TRIED TO GIVE REPORT TO SNF AND SAID THAT THEY HAVE TI VERIFY WITH DON AND WILL CALL BACK
--- NOTE | 2021-05-01 20:00 | NUR ---
Patient discharged to [facility]. Transferred via [facility]. All belongings sent with patient. IV to left hand DC. Patient still restless, stable otherwise.
== END 2021-05-01 20:00 | DRG 373 ==
LOC: MEDSURG3 10:45
PROVIDERS: ADMIT Nurse Practitioner Acute Care; ATTEND Nurse Practitioner Acute Care
DX: A04.9 Bacterial intestinal infection, unspecified (principal); E86.0 Dehydration; E11.9 Type 2 diabetes mellitus without complications; S02.2XXA Fracture of nasal bones, initial encounter for closed fracture; W19.XXXA Unspecified fall, initial encounter; Y93.9 Activity, unspecified; Y92.9 Unspecified place or not applicable; E11.65 Type 2 diabetes mellitus with hyperglycemia; E78.5 Hyperlipidemia, unspecified; F03.90 Unspecified dementia, unspecified severity, without behavioral disturbance, psychotic disturbance, mood disturbance, and anxiety; F32.A Depression, unspecified; I10 Essential (primary) hypertension; K21.9 Gastro-esophageal reflux disease without esophagitis
CPT/HCPCS: 36415; 70160; 83735; 84100; 85025; 89055; G0378; J1630; J1815; J3475; J3490; J7042; J7050